=== PATIENT | male | born 1970 | race Caucasian/White ===

== ENCOUNTER 2018-08-11 17:55 | Inpatient (IN) | payer OTHER ==
--- NOTE | 2018-08-11 17:59 | PDOC ---
Rapid Medical Evaluation Chief Complaint: CVA/TIA Time Seen by Provider: 08/11/18 17:58 Medical Evaluation: Allergies Allergy/AdvReac Type Severity Reaction Status Date / Time No Known Allergies Allergy Verified 08/11/18 17:58 08/11/18 17:58 I have performed a brief in person evaluation of this patient The patient is a 48 yo smoker w/ a h/o DM, CVA comes in c/o sudden onset of difficulty getting thoughts together (expressive aphasia), dizziness, confusion , and disorientation I have ordered the following EKG, CBC, CMP, cardiac profile, CXR, CT head The patient will proceed to the ED for further evaluation 08/11/18 18:01 Discharge Disposition - Diagnosis Expressive aphasia - Referrals - Patient Instructions - Post Discharge Activity
[2018-08-11 18:04] VITALS: BMI 35.6
--- NOTE | 2018-08-11 18:23 | PDOC ---
History of Present Illness <Charles Bonilla - Last Filed: 08/11/18 18:59> - History of Present Illness Initial Comments: 08/11/18 23:05 Patient seen and evaluated immediately upon arrival. This H&P is being recorded after the initial evaluation has been completed. 48-year-old male with history of diabetes, previous CVA without residual deficits presents with left sided weakness and generalized feeling of being unwell that started approximately one hour prior to arrival. Patient reports that his symptoms are similar to the presentation when he was diagnosed with a CVA previously. Patient denies visual changes; patient does report an onset of chest discomfort shortly prior to the onset of weakness. Chest pain has now resolved. Patient denies dysarthria or dysphagia or abnormal gait. Patient was driving at the time of the onset of symptoms. REVIEW OF SYSTEMS CONSTITUTIONAL: No fever, no chills, no fatigue EYES: No visual changes ENT: No ear pain, no sore throat CARDIOVASCULAR: No chest pain, no palpitations RESPIRATORY: No cough, no SOB GI: No abdominal pain, no nausea, no vomiting, no constipation, no diarrhea GENITOURINARY: No dysuria, no frequency, no hematuria MUSKULOSKELETAL: No backpain, no joint pain, no myalgias SKIN: No rash NEURO: No headache; + left-sided weakness EXAMINATION CONSTITUTIONAL: Awake; alert; well-nourished; in no apparent distress HEAD: Normocephalic; atraumatic EYES: PERRL; EOM intact; no nystagmus ENMT: External appears normal; normal oropharynx NECK: Supple; non-tender; no cervical lymphadenopathy; no carotid bruits CARD: Tachycardic; Normal S1, S2; no murmurs, rubs, or gallops RESP: Normal chest excursion with respiration; breath sounds clear and equal bilaterally; no wheezes, rhonchi, or rales ABD: Soft, non-distended; non-tender; no palpable organomegaly, no palpable hernias EXT: Normal ROM in all four extremities; non-tender to palpation; distal pulses intact SKIN: Warm, dry, no rash NEURO: Cranial nerves II through XI are grossly intact; + tongue deviation is noted to the right; uvula is midline; motor is 5 of 54; left upper/left lower extremity drift is noted. Sensation is decreased to the left upper/lower extremity; + left upper extremity pronation drift is noted; gait-deferred. <Anselmo Wilkes - Last Filed: 08/12/18 00:37> - General Chief Complaint: CVA/TIA Stated Complaint: PAIN Time Seen by Provider: 08/11/18 17:58 Past History <Charles Bonilla - Last Filed: 08/11/18 18:59> - Past Medical History CVA: Yes (2009) COPD: No Diabetes: Yes - Immunization History Immunization Up to Date: Yes - Suicide/Smoking/Psychosocial Hx Smoking History: Current every day smoker Number of Cigarettes Smoked Daily: 7 Information on smoking cessation initiated: No Hx Alcohol Use: No Drug/Substance Use Hx: No <Anselmo Wilkes - Last Filed: 08/12/18 00:37> - Past Medical History Allergies/Adverse Reactions: Allergies Allergy/AdvReac Type Severity Reaction Status Date / Time No Known Allergies Allergy Verified 08/11/18 17:58 *Physical Exam - Vital Signs Last Vital Signs Temp Pulse Resp BP Pulse Ox 98.8 F 118 H 16 178/93 H 100 08/11/18 17:58 08/11/18 17:58 08/11/18 17:58 08/11/18 17:58 08/11/18 17:58 <Charles Bonilla - Last Filed: 08/11/18 18:59> - Vital Signs Last Vital Signs Temp Pulse Resp BP Pulse Ox 98.8 F 118 H 16 178/93 H 100 08/11/18 17:58 08/11/18 17:58 08/11/18 17:58 08/11/18 17:58 08/11/18 17:58 <Anselmo Wilkes - Last Filed: 08/12/18 00:37> NIH Stroke Scale - Last Known Well Date/Time & Onset Date Last Known Well: 08/11/18 Time Last Known Well: 05:20 - Initial Evaluation Level of consciousness: Alert Ask patient the month and their age: Answers both correctly Ask patient to open & close eyes; make fist and let go: Obeys both correctly Best gaze (horizontal eye movement): Normal Visual field testing: No visual field loss Facial paresis (Show teeth/raise eyebrows/close eyes tight): Normal symmetrical movement Motor Function: Left Arm: Drift Motor Function: Right Arm: Normal (extends arm 90 (or 45) degrees for 10 seconds without drift Motor Function: Left Leg: Drift Motor Function: Right Leg: Normal (extends leg 30 degrees for 5 seconds without drift) Limb Ataxia: No ataxia Sensory(Use pinprick test arms,legs,trunk,face/side to side): Mild to moderate decrease in sensation Best language (Describe picture, name items, read sentences): No Aphasia Dysarthria (read several words): Normal articulation Extinction and Inattention: No abnormality - Total Score NIH Stroke Scale Score: 3 <Anselmo Wilkes - Last Filed: 08/12/18 00:37> tPA Exclusion Checklist 0-3hr - Time Elapsed Date last known well: 08/11/18 - Thrombolytic Therapy Candidate Is the patient eligible for Thrombolytic Therapy?: Yes - Exclusion Criteria 0-3hr SBP greater than 185 or DBP greater than 110mmHg despite tx: No Recent IC/spinal surgery,head trauma or stroke w/in last 3mo: No Hx of previous IC hemorrhage, IC neoplasm, AVM or aneurysm: No Active internal bleeding: No Blding diathesis(low plt ct, inc PTT,INR>1.7 or use of NOAC): No Symptoms suggest subarachnoid hemorrhage: No CT demonstrates multilobar infarct(>1/3 cerebral hemiphere): No Arterial puncture at noncompressible site in previous 7 days: No Blood glucose concentration less than 50mg/dL (2.7mmol/L): No - Relative Exclusion Criteria 0-3h Life expectancy <1yr/severe co-morbid illness/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: No : No Patient/family refused: Yes Rapid improvement: No Stroke severity too mild: Yes Recent acute MA (w/in previous 3 months): No Seizure at onset with postictal residual neuro impairments: No Major surgery or serious trauma w/in previous 14 days: No Recent GI or hemorrhage (w/in previous 21 days): No - Ineligibility reason(s) Reasons No tPA given: See reason(s) noted above (NIHSS-3) <Anselmo Wilkes - Last Filed: 08/12/18 00:37> Moderate Sedation - Procedure Monitoring Vital Signs: Procedure Monitoring Vital Signs Temperature 98.8 F 08/11/18 17:58 Pulse Rate 118 H 08/11/18 17:58 Respiratory Rate 16 08/11/18 17:58 Blood Pressure 178/93 H 08/11/18 17:58 O2 Sat by Pulse Oximetry (%) 100 08/11/18 17:58 <Charles Bonilla - Last Filed: 08/11/18 18:59> - Procedure Monitoring Vital Signs: Procedure Monitoring Vital Signs Temperature 98.8 F 08/11/18 17:58 Pulse Rate 118 H 08/11/18 17:58 Respiratory Rate 16 08/11/18 17:58 Blood Pressure 178/93 H 08/11/18 17:58 O2 Sat by Pulse Oximetry (%) 100 08/11/18 17:58 <Anselmo Wilkes - Last Filed: 08/12/18 00:37> Heart Score/ECG Review #1 08/11/18 18:56 Sinus tachycardia Otherwise normal ECG Vent rate 105 bpm OR interval 140 ms QRS duration 88 ms QT/QTc 342/452 ms P-R-T 60 48 [address] Wilkes. <Charles Bonilla - Last Filed: 08/11/18 18:59> Critical Care Time/MDM Note - Medical Decision Making Note: 08/11/18 18:21 Patient seen and evaluated. Patient is a 48-year-old male with history of diabetes who presents with general feeling of unwell, left upper extremity drift and left lower extremity weakness of one hour duration. Will obtain CT of head. We'll consult neurology. 08/11/18 18:42 Case discussed with neurology, Dr. JOLLY. Given the patient's NIH stroke scale score of 2, TPA is not indicated. Will reassess. Will obtain CTA of brain as well as carotid Dopplers. We'll administer aspirin and Lipitor if no intracranial hemorrhages noted. 08/11/18 18:[address] Blood pressure is noted to be 140/80 without intervention. Repeat evaluation reveals lingual deviation to the right and decreased sensation to the area left upper and lower extremity for a total 1H stroke scale of 3. Given the risk versus benefit analysis of TPA in this patient , TPA is not indicated. I also discussed TPA administration with the patient and at this time, he expressed desire not to receive it. 08/11/18 23:04 Patient reassessed. Exam unchanged. CTA of chest/neck and brain obtained. 08/11/18 23:09 BP: 128/72 <Anselmo Wilkes - Last Filed: 08/12/18 00:37> *DC/Admit/Observation/Transfer - Attestations Scribe Attestion: 08/11/18 18:46 Documentation prepared by Charles Bonilla, acting as medical office manager for Anselmo Wilkes MD. <Charles Bonilla - Last Filed: 08/11/18 18:59> - Discharge Dispostion Decision to Admit order: Yes <Anselmo Wilkes - Last Filed: 08/12/18 00:37> Diagnosis at time of Disposition: Expressive aphasia Cerebrovascular accident (CVA) Qualifiers: CVA mechanism: unspecified Qualified Code(s): I63.9 - Cerebral infarction, unspecified - Discharge Dispostion Condition at time of disposition: Fair - Referrals Referrals: Adan Herrera MD [Primary Care Provider] -
[2018-08-11] MEDS ORDERED: ASPIRIN 325 MG TABLET ONE (19:01)
[2018-08-11] MEDS ORDERED: ASPIRIN 325 MG TABLET PO ONE (19:01)
[2018-08-11] MEDS ORDERED: ATORVASTATIN CA 80 MG TABLET (FP) PO ONE (19:02)
[2018-08-11 19:08] LABS: BASO % 1.1 % (0-2.0); EOS % 1.7 % (0-4.5); HEMATOCRIT 41.4 % (35.4-49); HEMOGLOBIN 14.8 GM/dL (11.7-16.9); LYMPH % 29.8 % (8-40); MCH 30.5 pg (25.7-33.7); MCHC 35.7 g/dl (32.0-35.9); MEAN CELL VOLUME 85.4 fl (80-96); MEAN PLT VOLUME 10.4 fl (7.5-11.1); MONO % 6.3 % (3.8-10.2); NEUT % 61.1 % (42.8-82.8); PLATELET COUNT 265 K/MM3 (134-434); RBC 4.84 M/mm3 (4.00-5.60); WHITE BLOOD COUNT 18.4 K/mm3 (4.0-10.0)
[2018-08-11] MEDS ORDERED: ATORVASTATIN CA 80 MG TABLET (FP) ONE (19:11)
[2018-08-11 19:55] LABS: VENOUS PC02 37.5 mmHg (38-52); VENOUS PH 7.44 (7.32-7.42); VENOUS PO2 66.4 mmHg (28-48)
[2018-08-11] MEDS ORDERED: ACETAMINOPHEN 500 MG TABLET (FP) PO ONE (20:10)
[2018-08-11] MEDS ORDERED: ACETAMINOPHEN 325 MG TABLET (FP) ONE (20:28)
[2018-08-11 20:45] LABS: INR 1.01 (0.83-1.09); PROTHROMBIN TIME (PATIENT) 11.9 SEC (9.7-13.0)
[2018-08-11 20:57] LABS: ALK PHOS 59 U/L (45-117); ANION GAP 9 MMOL/L (8-16); BILIRUBIN,TOTAL 0.2 mg/dL (0.2-1); BLOOD UREA NITROGEN 18 mg/dL (7-18); CALCIUM 8.9 mg/dL (8.5-10.1); CHLORIDE 105 mmol/L (98-107); CHOLESTEROL 229 mg/dL (50-200); CO2 25 mmol/L (21-32); CREATININE 1.1 mg/dL (0.55-1.3); GLUCOSE,RANDOM 96 mg/dL (74-106); HDL CHOLESTEROL 39 mg/dL (40-60); MAGNESIUM 2.2 mg/dL (1.8-2.4); PHOSPHOROUS 2.8 mg/dL (2.5-4.9); SGOT/AST 14 U/L (15-37); SGPT/ALT 25 U/L (13-61); SODIUM 140 mmol/L (136-145); TOT PROT 7.5 g/dl (6.4-8.2); TRIGLYCERIDES 264 mg/dL (0-150)
--- NOTE | 2018-08-12 01:34 | HP ---
CHIEF COMPLAINT: left-sided weakness PCP: Adan Herrera HISTORY OF PRESENT ILLNESS: Patient is a 48 y/o M w/ PMHx DM, CVA in 2009 treated with tPA (Pt reports full recovery w/o residual deficits after extensive PT), p/w sudden onset LUE and LLE weakness 1 hour prior to arrival. Experienced self-resolving chest pain prior to onset of weakness. Additionally c/o lightheadedness, confusion since resolved. Denies dysphagia, dysarthria, change in sensation, SOB. Hypertensive and tachycardic on presentation, VS stabilized spontaneously without intervention. Was within tPA window at time of presentation. Neurologist Sara was contacted by ED; based upon NIHSS 3 at time of presentation, neurologic recommendation was that risks of tPA outweight benefits and medical management with ASA and statin was initiated. Head CT revealed possible small left thalamic infarct of unknown age. Head, neck, and chest CTA revealed extensive atherosclerotic disease without hemodynamically significant stenoses. Initial labs significant for WBC 18.4, trop negative x 1, elevated TG, TChol, LDL, and low HDL. Glucose 96. ER course was notable for: (1) WBC 18.4, trop neg x 1, abnormal lipid studies (2) no definite acute pathology on CT/CTA studies (3) Recent Travel: PAST MEDICAL HISTORY: As per HPI PAST SURGICAL HISTORY: As per HPI Social History: Smoking: active smoker 1/2ppd, ~17 pk year history Alcohol: rare Drugs: none Family History: Allergies No Known Allergies Allergy (Verified 08/11/18 17:58) HOME MEDICATIONS: REVIEW OF SYSTEMS As per HPI PHYSICAL EXAMINATION Vital Signs - 24 hr 08/11/18 08/11/18 17:58 22:20 Temperature 98.8 F Pulse Rate 118 H Pulse Rate [ 74 Apical] Respiratory 16 16 Rate Blood Pressure 178/93 H Blood Pressure 96/79 [Right Arm] O2 Sat by Pulse 100 98 Oximetry (%) GENERAL: A&Ox3, NAD HEAD: NC/AT EYES: PERRLA, EOMI EARS, NOSE, THROAT: MMM NECK: Normal range of motion, supple without lymphadenopathy, JVD, or masses. LUNGS: CTA b/l HEART: RRR no m/r/g ABDOMEN: +bs, soft, NT, ND UPPER EXTREMITIES: 2+ pulses, warm, well-perfused. No cyanosis. No clubbing. No peripheral edema. LOWER EXTREMITIES: 2+ pulses, warm, well-perfused. No calf tenderness. No peripheral edema. NEUROLOGICAL: -CN: PERRLA, EOMI, CNV1-3 intact b/l, no facial asymmetry, no auditory deficit, symmetric palatal rise, uvula midline, tongue deviation to right, 4/5 strength of left trapezius and SCM -motor: 5/5 strength in RUE and RLE, 4-4+/5 strength throughout LUE, LLE at all joints proximally and distally; +left pronator drift; +spasticity of LUE and LLE -sensory: no sensory deficits appreciated, negative Romberg -reflexes: 2+ DTRs throughout, unresponsive plantars -cerebellar: FtN intact b/l, HtS impared on left (possibly d/t weakness) -EPS: no signs -gait: normal PSYCHIATRIC: Cooperative. Good eye contact. Appropriate mood and affect. SKIN: Warm, dry, normal turgor, no rashes or lesions noted, normal capillary refill. Laboratory Results - last 24 hr 08/11/18 08/11/18 08/11/18 18:15 18:15 18:15 WBC 18.4 H RBC 4.84 Hgb 14.8 Hct 41.4 MCV 85.4 MCH 30.5 MCHC 35.7 RDW 14.0 Plt Count 265 MPV 10.4 Absolute Neuts (auto) 11.3 H Neutrophils % 61.1 Lymphocytes % 29.8 Monocytes % 6.3 Eosinophils % 1.7 Basophils % 1.1 Nucleated RBC % 0 PT with INR Cancelled INR Cancelled VBG pH 7.44 H POC VBG pCO2 37.5 L POC VBG pO2 66.4 H Mixed VBG HCO3 25.0 Sodium Potassium Chloride Carbon Dioxide Anion Gap BUN Creatinine Creat Clearance w eGFR POC Glucometer Random Glucose Calcium Phosphorus Magnesium Total Bilirubin AST ALT Alkaline Phosphatase Creatine Kinase Creatine Kinase Index CK-MB (CK-2) Troponin I Total Protein Albumin Triglycerides Cholesterol Total LDL Cholesterol HDL Cholesterol Lipase Blood Type Antibody Screen 08/11/18 08/11/18 08/11/18 18:15 18:15 18:24 WBC RBC Hgb Hct MCV MCH MCHC RDW Plt Count MPV Absolute Neuts (auto) Neutrophils % Lymphocytes % Monocytes % Eosinophils % Basophils % Nucleated RBC % PT with INR INR VBG pH POC VBG pCO2 POC VBG pO2 Mixed VBG HCO3 Sodium Cancelled Potassium Cancelled Chloride Cancelled Carbon Dioxide Cancelled Anion Gap Cancelled BUN Cancelled Creatinine Cancelled Creat Clearance w eGFR Cancelled POC Glucometer [id number] Random Glucose Cancelled Calcium Cancelled Phosphorus Cancelled Magnesium Cancelled Total Bilirubin Cancelled AST Cancelled ALT Cancelled Alkaline Phosphatase Cancelled Creatine Kinase Cancelled Creatine Kinase Index CK-MB (CK-2) Troponin I Cancelled Total Protein Cancelled Albumin Cancelled Triglycerides Cancelled Cholesterol Cancelled Total LDL Cholesterol Cancelled HDL Cholesterol Cancelled Lipase Cancelled Blood Type Antibody Screen 08/11/18 08/11/18 08/11/18 19:45 19:55 19:55 WBC RBC Hgb Hct MCV MCH MCHC RDW Plt Count MPV Absolute Neuts (auto) Neutrophils % Lymphocytes % Monocytes % Eosinophils % Basophils % Nucleated RBC % PT with INR 11.90 INR 1.01 VBG pH POC VBG pCO2 POC VBG pO2 Mixed VBG HCO3 Sodium 140 Potassium 4.0 Chloride 105 Carbon Dioxide 25 Anion Gap 9 BUN 18 Creatinine 1.1 Creat Clearance w eGFR > 60 POC Glucometer Random Glucose 96 Calcium 8.9 Phosphorus 2.8 Magnesium 2.2 Total Bilirubin 0.2 AST 14 L ALT 25 Alkaline Phosphatase 59 Creatine Kinase 171 Creatine Kinase Index 0.5 CK-MB (CK-2) < 1.0 Troponin I < 0.02 Total Protein 7.5 Albumin 4.0 Triglycerides 264 H Cholesterol 229 H Total LDL Cholesterol 149 H HDL Cholesterol 39 L Lipase Blood Type O POSITIVE Antibody Screen Negative ASSESSMENT/PLAN: 48 y/o M w/ PMHx DM, CVA in 2009 treated with tPA (Pt reports full recovery w/o residual deficits after extensive PT), p/w sudden onset LUE and LLE weakness 1 hour prior to arrival. #CVA vs TIA -multiple subtle lateralizing neurologic findings as per PE, acute vs. chronic -low NIHSS on presentation, neurology contacted by ED and advised against tPA -initial CT/CTA imaging workup negative -Brain MRI -consider neurology consult -medical management w/ ASA and statin -permissive HTN x 24 hours -NPO -S/S eval -dysphagia precautions -restart ASA, statin -elevate HOB 15 degrees -fall precautions -PT -TSH, prolactin pending -cardiac monitoring #DM -hold home metformin -BGM ACHS -SSI -A1c pending #FEN -no IVF -monitor lytes -NPO pending S/S eval #code -full #dispo -tele obs Visit type - Emergency Visit Emergency Visit: Yes ED Registration Date: 08/12/18 Care time: The patient presented to the Emergency Department on the above date and was hospitalized for further evaluation of their emergent condition. - New Patient This patient is new to me today: Yes Date on this admission: 08/12/18 - Critical Care Critical Care patient: No
[2018-08-12] MEDS ORDERED: LACTATED RINGERS SOLUTION 1,000 ML/1,000 ML INFUS.BAG IV SCH (02:15)
--- NOTE | 2018-08-12 02:21 | PN ---
Teaching Attending Note Name of Resident: Raul Shipley ATTENDING PHYSICIAN STATEMENT I saw and evaluated the patient. I reviewed the resident's note and discussed the case with the resident. I agree with the resident's findings and plan as documented. SUBJECTIVE: Patient is a 48 y/o HM with a known PMH of prior CVA, DM on metformin, and obesity who presents to the ER with a CC of an episode of chest pain followed by L-sided weakness in the LUE and LLE; he was also noted to have a slight tongue deviation to the R-side. He has not had these symptoms before. He had a 2 on his NIHSS for LUE and LLE; when asked if these were old he said he actually never has been assessed for strength the way we did since his stroke so he was unsure if there was any drift present to begin with but he does admit that he is acutely weak. In terms of his chest pain, it was L-sided substernal and was moderate to severe in intensity at rest and typical in nature. He has never seen a chicle grinder feeder, had prior cath/stress testing, etc. He reveals to me that for quite some time (ie months) he has been unable to ambulate more than 3-4 city blocks due to typical anginal symptoms that are associated with exercise intolerance. He is chest pain free at the time of our encounter. He will be placed on the medicine service for observation. Neurology has been consulted by the ER. In the ER, for reasons as documented in their note tPA was not given. 10 sys ROS done and is negative aside from HPI PMH and PSH reviewed FH reviewed; per chart Socially he is a current smoker; denies significant EtOH abuse Medication list reviewed OBJECTIVE: VS, labs, imaging reviewed NAD, AAOx3, resting in bed NIHSS 2 (L-arm, L-leg; sensory deficits elicited in ER but were not able to be demonstrated on my exam); CN's in tact aside from hypoglossal with minor R- sided tongue. Speech fluid. Eating potato chips at the time of our encounter. RRR s1/2 no mgr No JVD, no LE edema Labs show HLD with TG 264, Tchol 229, LDL 149, HDL 34; initial troponin negative. CT head shows subtle L-thalamic infarct, atherosclerotic disease CTA head and neck shows no significant disease or lesion but higher than expected for age degree of stenosis ASSESSMENT AND PLAN: Mr. Arredondo is a 48 y/o HM presenting with symptoms suspect for CVA/TIA and chest pain that is revealed to have some chronic anginal components. Given his history he is at high risk for cardiovascular and cerebrovascular disease. 1) L-sided weakness, TIA v CVA -Monitor on floor on telemetry with neuro checks and seizure precautions -Neurology consulted by the ER; followup. Appreciate specialist input. -tPA not given for reasons documented in ER note (low NIH, etc.). NIHSS at this point is 2 (LUE and LLE weak) -CT, CTA reviewed. MRI, echo pending. Given that the CTA included neck we can forego carotid doppler. -Swallow study given the h/o dysphagia when this occurred (couldn't r/o aspiration risk with [facility] Stroke Screen) -Given ASA 325 in ER; continue ASA 81 PO QD and high-intensity statin given his ASCVD risk (given his age and history of stroke) -Physical therapy to assess 2) Chronic Typical Anginal Pain with episode of UA -Patient has been having chest pain and exercise intolerance for months, had an episode of CP today at rest that has resolved. He is found to have CAD on his CTA of his chest and out of proportion to age carotid atherosclerosis. Given the aforementioned alongside his age, ethnicity, obesity, current smoking status , HLD, likely HTN, DM, and history of stroke he is at very elevated risk for CAD. -Repeat EKG, trend troponin, monitor on telemetry. -Given the fact that he has LLE weakness from #1, would be a fall risk to do exercise stress testing. I will order a lexiscan and plan to consult cardiology if the test is positive -Continue on high intensity statin, ASA 81mg PO QD. 3) DM -Check A1c, hold MTF, SSI while inpt 4) Likely HTN -Had a hypertensive reading on presentation; repeat wnl. Obtain repeat BP measurements in both arms and monitor throughout hospitalization. If he needs an agent to cover I would recommend LOS inhibitor given his risk of DM, but we are in no hurry to cover due to #1 and if true CVA would benefit from permissive HTN. 5) HLD -High intensity statin; followup CMP and monitor for cramps 6) Obesity -Utilization Coordinator when clinically appropriate 7) Leukocytosis -No fevers or source for infection identified. Check inflammatory markers, trend CBC. If he becomes febrile or clinically looks septic then will of course cover but until then will monitor him. FENA -LR@75cc/hr overnight until eating -PRN replete -NPO until clear by swallow and with acknowledgement to needing to be NPO for stress -OOB2C, PT consult; advance as tolerated
[2018-08-12 04:16] LABS: URINE APPEARANCE CLEAR; URINE BILIRUBIN NEGATIVE (<2.0 mg/dL); URINE COLOR AMBER; URINE GLUCOSE (UA) NEGATIVE (NEGATIVE); URINE KETONE TRACE (NEGATIVE); URINE LEUK ESTERASE NEGATIVE (NEGATIVE); URINE NITRITE NEGATIVE (NEGATIVE); URINE PROTEIN NEGATIVE (NEGATIVE)
[2018-08-12 07:24] LABS: BASO % 0.5 % (0-2.0); EOS % 3.2 % (0-4.5); HEMOGLOBIN 14.1 GM/dL (11.7-16.9); LYMPH % 40.9 % (8-40); MCH 28.3 pg (25.7-33.7); MCHC 32.8 g/dl (32.0-35.9); MEAN CELL VOLUME 86.3 fl (80-96); MEAN PLT VOLUME 9.2 fl (7.5-11.1); MONO % 6.4 % (3.8-10.2); PLATELET COUNT 199 K/MM3 (134-434); RBC 4.98 M/mm3 (4.00-5.60); WHITE BLOOD COUNT 12.8 K/mm3 (4.0-10.0)
[2018-08-12 08:12] LABS: ANION GAP 7 MMOL/L (8-16); BLOOD UREA NITROGEN 15 mg/dL (7-18); CALCIUM 8.7 mg/dL (8.5-10.1); CHLORIDE 105 mmol/L (98-107); CO2 27 mmol/L (21-32); CREATININE 0.9 mg/dL (0.55-1.3); GLUCOSE,RANDOM 105 mg/dL (74-106); MAGNESIUM 2.3 mg/dL (1.8-2.4); PHOSPHOROUS 3.6 mg/dL (2.5-4.9); POTASSIUM 3.9 mmol/L (3.5-5.1); SODIUM 139 mmol/L (136-145)
[2018-08-12] MEDS ORDERED: REGADENOSON 0.4 MG/5 ML PRE-FILLED SYRINGE IVPUSH ONE (09:00)
--- NOTE | 2018-08-12 09:22 | PN ---
Physical Exam: SUBJECTIVE: Patient seen and examined. No acute events overnight. Pt. states that he feels better and is asking for food. Pt. 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 The senior quality assurance engineer told him that he should not be on blood thinners because he would have to be on them for the rest of his life. Pt. states that he has not take Aspirin in over 7 years. Pt. stated he does not check his blood glucose regularly at home and does not know what his glucose normal is at home. Pt. endorses chest pain on exertion to 10 steps or 3 blocks. OBJECTIVE: Vital Signs Period Temp Pulse Resp BP Sys/Barfield Pulse Ox Last 24 Hr 98 F-98.8 F 74-118 16-18 96-178/53-93 98-100 GENERAL: The patient is awake, alert, and fully oriented, in no acute distress. HEAD: Normal with no signs of trauma. EYES: PERRL, left eye twitching/horizontal nystagmus when looking to the left , sclera anicteric, conjunctiva clear. Left eye ptosis. Prominent inferior visual field deficit and peripheral vision deficits L>R ENT: Ears normal, nares patent, oropharynx clear without exudates, moist mucous membranes. NECK: Trachea midline, full range of motion, supple, carotid bruit present. LUNGS: Breath sounds equal, inspiratory wheeze in RUL, no crackles, no accessory muscle use. HEART: Regular rate and rhythm, S1, S2 without murmur ABDOMEN: Soft, nontender, nondistended, normoactive bowel sounds, no guarding, no rebound, dull to percussion. EXTREMITIES: 2+ dorsal pedal pulses, warm, well-perfused, trace edema. LUE and LLE weakness 4/5 strength compared to 5/5 strength on RUE and RLE. NEUROLOGICAL: Normal speech, gait not observed. PSYCH: Normal mood, normal affect. SKIN: Warm, dry, normal turgor Laboratory Results - last 24 hr 08/11/18 08/11/18 08/11/18 06:00 18:15 18:15 WBC 18.4 H RBC 4.84 Hgb 14.8 Hct 41.4 MCV 85.4 MCH 30.5 MCHC 35.7 RDW 14.0 Plt Count 265 MPV 10.4 Absolute Neuts (auto) 11.3 H Neutrophils % 61.1 Lymphocytes % 29.8 Monocytes % 6.3 Eosinophils % 1.7 Basophils % 1.1 Nucleated RBC % 0 PT with INR Cancelled INR Cancelled VBG pH POC VBG pCO2 POC VBG pO2 Mixed VBG HCO3 Sodium Potassium Chloride Carbon Dioxide Anion Gap BUN Creatinine Creat Clearance w eGFR POC Glucometer Random Glucose Hemoglobin A1c % Calcium Phosphorus Magnesium Total Bilirubin AST ALT Alkaline Phosphatase Creatine Kinase Creatine Kinase Index CK-MB (CK-2) Troponin I C-Reactive Protein Total Protein Albumin Triglycerides Cholesterol Total LDL Cholesterol HDL Cholesterol Lipase TSH Urine Color Urine Appearance Urine pH Ur Specific [place] Urine Protein Urine Glucose (UA) Urine Ketones Urine Blood Urine Nitrite Urine Bilirubin Urine Urobilinogen Ur Leukocyte Esterase Blood Type O POSITIVE Antibody Screen 08/11/18 08/11/18 08/11/18 18:15 18:15 18:15 WBC RBC Hgb Hct MCV MCH MCHC RDW Plt Count MPV Absolute Neuts (auto) Neutrophils % Lymphocytes % Monocytes % Eosinophils % Basophils % Nucleated RBC % PT with INR INR VBG pH 7.44 H POC VBG pCO2 37.5 L POC VBG pO2 66.4 H Mixed VBG HCO3 25.0 Sodium Cancelled Potassium Cancelled Chloride Cancelled Carbon Dioxide Cancelled Anion Gap Cancelled BUN Cancelled Creatinine Cancelled Creat Clearance w eGFR Cancelled POC Glucometer Random Glucose Cancelled Hemoglobin A1c % Calcium Cancelled Phosphorus Cancelled Magnesium Cancelled Total Bilirubin Cancelled AST Cancelled ALT Cancelled Alkaline Phosphatase Cancelled Creatine Kinase Cancelled Creatine Kinase Index CK-MB (CK-2) Troponin I Cancelled C-Reactive Protein Total Protein Cancelled Albumin Cancelled Triglycerides Cancelled Cholesterol Cancelled Total LDL Cholesterol Cancelled HDL Cholesterol Cancelled Lipase Cancelled TSH Urine Color Urine Appearance Urine pH Ur Specific [place] Urine Protein Urine Glucose (UA) Urine Ketones Urine Blood Urine Nitrite Urine Bilirubin Urine Urobilinogen Ur Leukocyte Esterase Blood Type Antibody Screen 08/11/18 08/11/18 08/11/18 18:24 19:45 19:55 WBC RBC Hgb Hct MCV MCH MCHC RDW Plt Count MPV Absolute Neuts (auto) Neutrophils % Lymphocytes % Monocytes % Eosinophils % Basophils % Nucleated RBC % PT with INR 11.90 INR 1.01 VBG pH POC VBG pCO2 POC VBG pO2 Mixed VBG HCO3 Sodium 140 Potassium 4.0 Chloride 105 Carbon Dioxide 25 Anion Gap 9 BUN 18 Creatinine 1.1 Creat Clearance w eGFR > 60 POC Glucometer 110.31454 Random Glucose 96 Hemoglobin A1c % Calcium 8.9 Phosphorus 2.8 Magnesium 2.2 Total Bilirubin 0.2 AST 14 L ALT 25 Alkaline Phosphatase 59 Creatine Kinase 171 Creatine Kinase Index 0.5 CK-MB (CK-2) < 1.0 Troponin I < 0.02 C-Reactive Protein Total Protein 7.5 Albumin 4.0 Triglycerides 264 H Cholesterol 229 H Total LDL Cholesterol 149 H HDL Cholesterol 39 L Lipase TSH Urine Color Urine Appearance Urine pH Ur Specific [place] Urine Protein Urine Glucose (UA) Urine Ketones Urine Blood Urine Nitrite Urine Bilirubin Urine Urobilinogen Ur Leukocyte Esterase Blood Type Antibody Screen 08/11/18 08/12/18 08/12/18 19:55 03:00 03:00 WBC RBC Hgb Hct MCV MCH MCHC RDW Plt Count MPV Absolute Neuts (auto) Neutrophils % Lymphocytes % Monocytes % Eosinophils % Basophils % Nucleated RBC % PT with INR INR VBG pH POC VBG pCO2 POC VBG pO2 Mixed VBG HCO3 Sodium Potassium Chloride Carbon Dioxide Anion Gap BUN Creatinine Creat Clearance w eGFR POC Glucometer Random Glucose Hemoglobin A1c % Calcium Phosphorus Magnesium Total Bilirubin AST ALT Alkaline Phosphatase Creatine Kinase Creatine Kinase Index CK-MB (CK-2) Troponin I < 0.02 C-Reactive Protein Total Protein Albumin Triglycerides Cholesterol Total LDL Cholesterol HDL Cholesterol Lipase TSH Urine Color [place] Urine Appearance Clear Urine pH 6.0 Ur Specific [place] 1.058 H Urine Protein Negative Urine Glucose (UA) Negative Urine Ketones Trace H Urine Blood Negative Urine Nitrite Negative Urine Bilirubin Negative Urine Urobilinogen 2.0 Ur Leukocyte Esterase Negative Blood Type O POSITIVE Antibody Screen Negative 08/12/18 08/12/18 08/12/18 05:38 06:00 06:00 WBC 12.8 H RBC 4.98 Hgb 14.1 Hct 43.0 MCV 86.3 MCH 28.3 MCHC 32.8 RDW 14.0 Plt Count 199 D MPV 9.2 D Absolute Neuts (auto) 6.3 Neutrophils % 49.0 Lymphocytes % 40.9 H D Monocytes % 6.4 Eosinophils % 3.2 D Basophils % 0.5 Nucleated RBC % 0 PT with INR INR VBG pH POC VBG pCO2 POC VBG pO2 Mixed VBG HCO3 Sodium 139 Potassium 3.9 Chloride 105 Carbon Dioxide 27 Anion Gap 7 L BUN 15 Creatinine 0.9 Creat Clearance w eGFR > 60 POC Glucometer 126 Random Glucose 105 Hemoglobin A1c % Calcium 8.7 Phosphorus 3.6 Magnesium 2.3 Total Bilirubin AST ALT Alkaline Phosphatase Creatine Kinase Creatine Kinase Index CK-MB (CK-2) Troponin I < 0.02 C-Reactive Protein Total Protein Albumin Triglycerides Cholesterol Total LDL Cholesterol HDL Cholesterol Lipase TSH 1.45 Urine Color Urine Appearance Urine pH Ur Specific [place] Urine Protein Urine Glucose (UA) Urine Ketones Urine Blood Urine Nitrite Urine Bilirubin Urine Urobilinogen Ur Leukocyte Esterase Blood Type Antibody Screen 08/12/18 08/12/18 06:00 06:00 WBC RBC Hgb Hct MCV MCH MCHC RDW Plt Count MPV Absolute Neuts (auto) Neutrophils % Lymphocytes % Monocytes % Eosinophils % Basophils % Nucleated RBC % PT with INR INR VBG pH POC VBG pCO2 POC VBG pO2 Mixed VBG HCO3 Sodium Potassium Chloride Carbon Dioxide Anion Gap BUN Creatinine Creat Clearance w eGFR POC Glucometer Random Glucose Hemoglobin A1c % 6.8 H Calcium Phosphorus Magnesium Total Bilirubin AST ALT Alkaline Phosphatase Creatine Kinase Creatine Kinase Index CK-MB (CK-2) Troponin I C-Reactive Protein 1.5 H Total Protein Albumin Triglycerides Cholesterol Total LDL Cholesterol HDL Cholesterol Lipase TSH Urine Color Urine Appearance Urine pH Ur Specific [place] Urine Protein Urine Glucose (UA) Urine Ketones Urine Blood Urine Nitrite Urine Bilirubin Urine Urobilinogen Ur Leukocyte Esterase Blood Type Antibody Screen Active Medications Home Medications Medication Instructions Recorded Metformin HCl [Glucophage] 500 mg PO BID 08/12/18 Current Medications Aspirin (Ecotrin -) 81 mg PO DAILY [facility] Atorvastatin Calcium (Lipitor -) 80 mg PO HS [facility] Lactated Ringer's (Lactated Ringers Solution) 1,000 ml in 1,000 mls @ 75 mls/ hr IV ASDIR [facility] ASSESSMENT/PLAN: Pt. is a 48 y.o M w/ PMHx. DM, CVA in 2009 treated with tPA (Pt reports full recovery w/o residual deficits after extensive PT), presents with sudden onset LUE and LLE weakness 1 hour prior to arrival. #Likely TIA vs. Stroke -history of stroke with residual deficits. Pt. reports feeling normal and at baseline however on physical exams many deficits noted. Will need to follow up at previous Physical Therapy centers to find out accurate baseline. -NIHSS: 4 if Pt.s hx. is accurate. -tPA NOT given in ED because risks outweigh benefits as recommended by Neurology -CT/CTA negative for acute pathology, extensive calcified athersclerotic plaques of carotid aortic bifurcation. Head CT showed small subtle left thalamic infarct, however prominent calcified atherosclerotic plaques along cavernous carotid arteries. -f/u Brain MRI -consider neurology consult -c/w ASA and statin -permissive HTN given for 24 hours -NPO pending Speech and swallow evaluations then diabetic diet -dysphagia precautions -restart ASA, statin -Physical Therapy -TSH: 1.45 -prolactin pending -Cardiac monitoring -f/u homocysteine and methylmalonic acid levels to assess for hyperhomocysteinemia -f/u with cardiology outpatient for stress test #NIDDM -hold home metformin -BGM ACHS -SSI -A1c: 6.8% #F/E/N -no IVF -monitor lytes -Diabetic diet after speech and swallow evaluation #Code -full #Dispo -tele obs Visit type - Emergency Visit Emergency Visit: Yes ED Registration Date: 08/12/18 Care time: The patient presented to the Emergency Department on the above date and was hospitalized for further evaluation of their emergent condition. - New Patient This patient is new to me today: Yes Date on this admission: 08/12/18 - Critical Care Critical Care patient: No - Discharge Referral Referred to [facility] Med P.C.: No
[2018-08-12] MEDS ORDERED: ASPIRIN 325 MG ENTERIC COATED TABLET (FP) PO SCH ×2 (10:00)
--- NOTE | 2018-08-12 10:20 | EKG ---
Test Reason : Blood Pressure : / mmHG Vent. Rate : 105 BPM Atrial Rate : 105 BPM P-R Int : 140 ms QRS Dur : 088 ms QT Int : 342 ms P-R-T Axes : 060 048 032 degrees QTc Int : 452 ms SINUS TACHYCARDIA OTHERWISE NORMAL ECG WHEN COMPARED WITH ECG OF 19-SEP-2007 18:22, NO SIGNIFICANT CHANGE WAS FOUND Confirmed by VONNIE HAYES MD ([id number]) on 08/12/2018 10:19:50 AM Referred By: Confirmed By:VONNIE HAYES MD
[2018-08-12] MEDS ORDERED: ASPIRIN COATED 81 MG TABLET.EC ONE (10:45)
[2018-08-12] MEDS: ASPIRIN COATED 81 MG TABLET.EC PO SCH (11:13)
--- NOTE | 2018-08-12 11:31 | CONSULT ---
Admitting History and Physical - Primary Care Physician PCP: Abdirahman Jung - Admission History of Present Illness: Per EMR: HISTORY OF PRESENT ILLNESS: Patient is a 48 y/o M w/ PMHx DM, CVA in 2009 treated with tPA (Pt reports full recovery w/o residual deficits after extensive PT), p/w sudden onset LUE and LLE weakness 1 hour prior to arrival. Experienced self-resolving chest pain prior to onset of weakness. Additionally c/o lightheadedness, confusion since resolved. Denies dysphagia, dysarthria, change in sensation, SOB. Hypertensive and tachycardic on presentation, VS stabilized spontaneously without intervention. Was within tPA window at time of presentation. Neurologist Sara was contacted by ED; based upon NIHSS 3 at time of presentation, neurologic recommendation was that risks of tPA outweight benefits and medical management with ASA and statin was initiated. Head CT revealed possible small left thalamic infarct of unknown age. Head, neck, and chest CTA revealed extensive atherosclerotic disease without hemodynamically significant stenoses. Initial labs significant for WBC 18.4, trop negative x 1, elevated TG, TChol, LDL, and low HDL. Glucose 96. ER course was notable for: (1) WBC 18.4, trop neg x 1, abnormal lipid studies (2) no definite acute pathology on CT/CTA studies Per hx from pt, pt felt strange sensation in head with "blood pouring", chest pain, disorientation.It felt like his previous stroke. Upon further discussion, pt said he was fasting for three days as a cleanse, only drinking water, still taking Metformin with recent dx of Diabetes. He has refused blood thinner, rec in past after his stroke. He is a present smoker.He feels the left sided weakness is baseline. History Source: Patient Limitations to Obtaining History: No Limitations - Smoking History Smoking history: Current every day smoker Aproximately how many cigarettes per day: 7 - Alcohol/Substance Use Hx Alcohol Use: No History - Admission Reason For Visit: CVA EXPRESSIVE APHASIA - Diagnostics X-ray: Report Reviewed CT Scan: Report Reviewed MRI: Pending - General Mental Status: Alert and Oriented, Awake and Alert, Able to Follow Commands Attention: Intact Ability to Follow Directions: Excellent Head/Neck Control: WFL - Hearing Hearing: Functional Speech Evaluation - Communication Primary Language: ICELANDIC Communication: Yes: Within Normal Limits Oral Expression Ability: Yes: No Impairment - Speech Production Able to Make Needs Known: Yes: WNL Intelligibility: Yes: WNL - Speech Characteristics Voice Loudness: Normal Voice Pitch: Yes: Normal Voice Phonatory-based Quality: Yes: Normal Speech Pattern: Normal Speech Clarity: < 100% Nasal Resonance: Normal Articulation: Yes: Precise Rate of Speech: Intact - Language/Auditory Comprehension Follows: Yes: 2 Stage Simple Commands Observation: Able to respond to yes/no queries: Yes, Yes/No Confusion: No, Comprehends Conversational Speech: Yes - Language/Verbal Expression Able to Respond to Simple Queries: Yes: WNL Able to Communicate Wants and Needs: Yes: WNL Functional Communication Status: Yes: WNL Attention: Yes: Intact - Memory/Perception technician terminal and repeater Memory: Yes: WNL Short Term Memory: Yes: WNL - Swallow Evaluation/Bedside Assessment Current Nutritional Intake: Regular, Thin Liquids Oral Secretions: Yes: WFL Dentition: Yes: Adequate Facial Symmetry at Rest: Symmetrical Facial Symmetry on Retraction: Symmetrical Sensation: Normal Against Resistance Opening: Normal Against Resistance Closing: Normal Pucker Lips: Normal Smile: Normal Lingual Movement: Deviates Right (Tongue deviates far to right? upon protrusion. Left sided hemiparesis baseline.I palpated tongue/neck, mandible without gross abnormalities.) Lingual Speed of Movement: Normal Lingual Movement Strgth Against Opposition: Normal Lingual Movement Characteristics: Normal Laryngeal Elevation: WFL Laryngeal Movement: Able to Palpate Rate of Intake: WFL Bolus Size: WFL Labial Seal: WFL Chewing: WFL Oral Prep Time: WFL A-P Transit: WFL Pocketing: None Timing of Swallow: WFL Coughing/Throat Clear: No Change in Voice: No Recommendations - Speech Evaluation, Impression/Plan Impression: Speech,language,swallowing, cognition intact. h/o Migraines atleast every 2 days. Recently needed to sleep on floor because of head pain.Also, Pt reports fasting for three days before onset of symptoms, still taking medication including Metformin. Present smoker.Voice wnl. Denies odynophagia, Dysphagia, vocal changes. Tongue deviates far to right? upon protrusion. I palpated tongue/neck, mandible without gross abnormalities. - Dysphagia Impressions/Plan Swallowing Skills: WFL Dysphagia Impressions: No Impairment *Silent aspiration: cannot be R/O at bedside Recommendations: Neuro Consult, Other (Smoking Cessation. RD consult re: DM education.) - Recommendations Diet Consistency: Regular Medication Administration: Whole with water Liquids: Thin Liquids
--- NOTE | 2018-08-12 11:55 | CON.CARD ---
Cardiology Consult (text) - Consultation Consultation Note: cc: confusion, headache, cp hpi: 48 m hx dm, smoking, cva here with confusion, headache, chest pain. Pt had been feeling well until yesterday when he had an unusual sensation of " water in my head", confusion, and central chest tightness. Sxs reminded him of his prior cva so came to ER. No sob palps loc pnd orthopnea le edema. Feels better now, asking to go home. No hx hrt dz. pmh: per hpi psh: nc social: +tob fam: no premature cad, scd ros: per hpi; no nvd fever abd pain gib hematuria dysuria muscle pains meds: Home Medications Medication Instructions Recorded Metformin HCl [Glucophage] 500 mg PO BID 08/12/18 Current Medications Generic Name Dose Route Start Last Admin Trade Name Ursula PRN Reason Stop Dose Admin Aspirin 81 mg 08/12/18 10:37 08/12/18 11:13 Ecotrin - PO 81 mg DAILY [facility] Administration Atorvastatin Calcium 80 mg 08/12/18 22:00 Lipitor - PO HS [facility] Lactated Ringer's 1,000 ml in 1,000 mls @ 75 mls/hr 08/12/18 02:15 Lactated Ringers Solution IV ASDIR [facility] pe: Vital Signs Period Temp Pulse Resp BP Sys/Barfield Pulse Ox Last 24 Hr 98 F-98.8 F 74-118 -18 96-178/53-93 98-100 nad no jvd rrr s1s2 no mrg cta bl nl eff aaox3 no le e/c/c abd nt nd pos bs no jaundice diaphoresis pos dp pt no carotid bruits Laboratory Last Values WBC 12.8 K/mm3 (4.0-10.0) H 08/12/18 06:00 RBC 4.98 M/mm3 (4.00-5.60) 08/12/18 06:00 Hgb 14.1 GM/dL (11.7-16.9) 08/12/18 06:00 Hct 43.0 % (35.4-49) 08/12/18 06:00 MCV 86.3 fl (80-96) 08/12/18 06:00 MCH 28.3 pg (25.7-33.7) 08/12/18 06:00 MCHC 32.8 g/dl (32.0-35.9) 08/12/18 06:00 RDW 14.0 % (11.9-15.9) 08/12/18 06:00 Plt Count 199 K/MM3 (134-434) D 08/12/18 06:00 MPV 9.2 fl (7.5-11.1) D 08/12/18 06:00 Absolute Neuts (auto) 6.3 K/mm3 (1.5-8.0) 08/12/18 06:00 Neutrophils % 49.0 % (42.8-82.8) 08/12/18 06:00 Lymphocytes % 40.9 % (8-40) H D 08/12/18 06:00 Monocytes % 6.4 % (3.8-10.2) 08/12/18 06:00 Eosinophils % 3.2 % (0-4.5) D 08/12/18 06:00 Basophils % 0.5 % (0-2.0) 08/12/18 06:00 Nucleated RBC % 0 % (0-0) 08/12/18 06:00 ESR 12 mm/hr (0-10) H 08/12/18 06:00 PT with INR 11.90 SEC (9.7-13.0) 08/11/18 19:55 INR 1.01 (0.83-1.09) 08/11/18 19:55 VBG pH 7.44 (7.32-7.42) H 08/11/18 18:15 POC VBG pCO2 37.5 mmHg (38-52) L 08/11/18 18:15 POC VBG pO2 66.4 mmHg (28-48) H 08/11/18 18:15 Mixed VBG HCO3 25.0 meq/L (19-25) 08/11/18 18:15 Sodium 139 mmol/L (136-145) 08/12/18 06:00 Potassium 3.9 mmol/L (3.5-5.1) 08/12/18 06:00 Chloride 105 mmol/L (98-107) 08/12/18 06:00 Carbon Dioxide 27 mmol/L (21-32) 08/12/18 06:00 Anion Gap 7 MMOL/L (8-16) L 08/12/18 06:00 BUN 15 mg/dL (7-18) 08/12/18 06:00 Creatinine 0.9 mg/dL (0.55-1.3) 08/12/18 06:00 Creat Clearance w eGFR > 60 (>60) 08/12/18 06:00 POC Glucometer 126 UNITS (80-120) 08/12/18 05:38 Random Glucose 105 mg/dL (74-106) 08/12/18 06:00 Hemoglobin A1c % 6.8 % (4.2-6.3) H 08/12/18 06:00 Calcium 8.7 mg/dL (8.5-10.1) 08/12/18 06:00 Phosphorus 3.6 mg/dL (2.5-4.9) 08/12/18 06:00 Magnesium 2.3 mg/dL (1.8-2.4) 08/12/18 06:00 Total Bilirubin 0.2 mg/dL (0.2-1) 08/11/18 19:45 AST 14 U/L (15-37) L 08/11/18 19:45 ALT 25 U/L (13-61) 08/11/18 19:45 Alkaline Phosphatase 59 U/L (45-117) 08/11/18 19:45 Creatine Kinase 171 IU/L (26-308) 08/11/18 19:45 Creatine Kinase Index 0.5 % (0.0-5.0) 08/11/18 19:45 CK-MB (CK-2) < 1.0 ng/mL (0.5-3.6) 08/11/18 19:45 Troponin I < 0.02 ng/ml (0.00-0.05) 08/12/18 06:00 C-Reactive Protein 1.5 MG/DL (0.00-0.3) H 08/12/18 06:00 Total Protein 7.5 g/dl (6.4-8.2) 08/11/18 19:45 Albumin 4.0 g/dl (3.4-5.0) 08/11/18 19:45 Triglycerides 264 mg/dL (0-150) H 08/11/18 19:45 Cholesterol 229 mg/dL (50-200) H 08/11/18 19:45 Total LDL Cholesterol 149 mg/dL (5-100) H 08/11/18 19:45 HDL Cholesterol 39 mg/dL (40-60) L 08/11/18 19:45 Lipase Cancelled 08/11/18 18:15 TSH 1.45 uIU/ml (0.358-3.74) 08/12/18 06:00 Urine Color [place] 08/12/18 03:00 Urine Appearance Clear 08/12/18 03:00 Urine pH 6.0 (5.0-8.0) 08/12/18 03:00 Ur Specific [place] 1.058 (1.010-1.035) H 08/12/18 03:00 Urine Protein Negative (NEGATIVE) 08/12/18 03:00 Urine Glucose (UA) Negative (NEGATIVE) 08/12/18 03:00 Urine Ketones Trace (NEGATIVE) H 08/12/18 03:00 Urine Blood Negative (NEGATIVE) 08/12/18 03:00 Urine Nitrite Negative (NEGATIVE) 08/12/18 03:00 Urine Bilirubin Negative (<2.0 mg/dL) 08/12/18 03:00 Urine Urobilinogen 2.0 mg/dL (0.2-1.0) 08/12/18 03:00 Ur Leukocyte Esterase Negative (NEGATIVE) 08/12/18 03:00 Blood Type O POSITIVE 08/11/18 19:55 Antibody Screen Negative 08/11/18 19:55 cta chest: no diss/aneurysm, clear lungs tele: sr ecg: sr nl intervals no ischemic changes a/p: 48 m hx dm, smoking, cva here with confusion, headache, chest pain. headache, confusion, ?cva: -tele, ecg benign -echo pending -plans per Neuro cp: -atypical cp episode, resolved now -trops negx3, ecg wnl -echo pending, if benign can f/u as outpt tob use: -smoking cessation discussed hld: -on statin
--- NOTE | 2018-08-12 11:56 | PN ---
Teaching Attending Note Name of Resident: Jose Roberto Solis ATTENDING PHYSICIAN STATEMENT I saw and evaluated the patient. I reviewed the resident's note and discussed the case with the resident. I agree with the resident's findings and plan as documented. SUBJECTIVE: No fever or chills. No abd pain, no LI now, but has chronic occipital LI for 3 years which became worse ( severity and frequency) a year ago. had a stroke in past, which affected his L side, and he is not sure that his L sided weakness is new or old . he reports exertional cp for < 30 min and resolves with resting. OBJECTIVE: NAD , AAOx3. CV: RRR , no MRG Lungs: CTAB Ext : no edema , or erythema. Neuro : EOMI, round equal pupils, reactive to light , no facial droop, tongue is slightly deviated to R. can't visualize uvula. strength : LUE: shoulder shrug, shoulder abduction and flexion, and biceps/triceps, hand postmaster 4/5. RUE: shoulder shrug, shoulder abduction and flexion, and biceps/triceps, hand postmaster 5/5. LLE: hip felxion, knee flexion /extension , ankle dorsiflexion and plantar flexion 4/5 RLE: hip felxion, knee flexion /extension , ankle dorsiflexion and plantar flexion 5/5 reflexes: 2+ knee jerk and biceps, and BR sensatio nto light touch NL finger to nose normal. gait NL ASSESSMENT AND PLAN: 48 y/o gentleman with h/o CVA, and DM who presented with L sided CP and L sided weakness. 1- L sided weakness: not sure if findings of L sided weakness are due to old stroke or new stroke. Ct head with L thalamic infarct. CTA reviewing. - MRI - aspirin daily - Echo - tele : no arrhythmias so far. - statin. - will need prolonged out patient cardiac monitoring after dc - neuro consult - reports having a blood disorder per a label paster he saw long time ago.He was advised to use asa . will try to obtain records and he was advised to follow withher ( Rojelio ) 2- Chest pain: typical angina per history. EKG : No ischemic changes. Nl trop - echo - given the possibility of acute stroke, canceled stress test. - needs a stress test as out pt 3- DM: A1c. 6. 8. - SSi - hold metformin 4- dispo: monitor for 24 hr on tele . MRI pending . possible dc in am
--- NOTE | 2018-08-12 14:43 | ECHO ---
Name: VJ XIE Exam:Adult Echocardiogram Study Date: 08/12/2018 01:55 PM Age: 48 yrs Reason For Study: Chest pain Height: 71 in Weight: 248 lb BSA: 2.3 m2 MMode/2D Measurements & Calculations IVSd: 1.1 cm Ao root diam: 3.3 cm LVIDd: 4.6 cm LA dimension: 3.0 cm LVIDs: 2.7 cm LVPWd: 1.2 cm EDV(Teich): 95.2 ml ESV(Teich): 26.6 ml Doppler Measurements & Calculations MV E max sage: 71.8 cm/sec Med Peak E' Sage: 10.7 cm/sec MV A max sage: 67.4 cm/sec Med E/e': 6.7 MV E/A: 1.1 Lat Peak E' Sage: 15.3 cm/sec MV dec time: 0.11 sec Lat E/e': 4.7 PI Vmax: 149.3 cm/sec Left Ventricle Left ventricular systolic function is normal. Ejection Fraction = 55-60%. Right Ventricle The right ventricle is normal in size and function. Atria Normal left and right atrial size and function. Mitral Valve The mitral valve is normal in structure and function. There is no mitral valve stenosis. There is mil d mitral regurgitation. Tricuspid Valve The tricuspid valve is normal in structure and function. There is mild tricuspid regurgitation. Aortic Valve The aortic valve opens well. No hemodynamically significant valvular aortic stenosis. No aortic regur gitation is present. Pulmonic Valve The pulmonic valve is not well seen, but is grossly normal. There is no pulmonic valvular stenosis. M ild pulmonic valvular regurgitation. Great Vessels The aortic root is normal size. Pericardium/Pleura There is no pericardial effusion. Interpretation Summary Left ventricular systolic function is normal. Ejection Fraction = 55-60%. The right ventricle is normal in size and function. There is mild mitral regurgitation. There is mild tricuspid regurgitation. The aortic valve opens well. There is no pericardial effusion. MD Guaman *Nabil 08/12/2018 02:42 PM
--- NOTE | 2018-08-12 16:25 | CON.NEURO ---
Consult Consult Specialty:: Neurology Referred by:: Dr. Jung Reason for Consultation:: Transient neurologic deficits - History of Present Illness Chief Complaint: Transient confusion History of Present Illness: Patient states that last night he started feeling odd, like water pouring over his head, then a bit confused and went to er, worried that he might be having a stroke. Had had a stroke in the past, with complete resolution of deficits after TPA and rehab. Over the last 6 months, he has been getting headaches every other day, either in the AM or PM for which he takes Excedrin (asa/tylenol/caffeine) as nothing else takes the headache away. He describes the pain as severe pain in the back of his head and radiating to the left eye. Denies nausea, photophobia, phonophobia. Says it feels like his eye is congested but denies nasal congestion, tearing, ptosis. He hasn't been taking ASA regularly since his stroke, but he gets it every other day from the Excedrin. 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 - Alcohol/Substance Use Hx Alcohol Use: No - Smoking History Smoking history: Current every day smoker Aproximately how many cigarettes per day: 7 Home Medications - Allergies Allergies/Adverse Reactions: Allergies Allergy/AdvReac Type Severity Reaction Status Date / Time No Known Allergies Allergy Verified 08/11/18 17:58 - Home Medications Home Medications: Ambulatory Orders Metformin HCl [Glucophage] 500 mg PO BID 08/12/18 Review of Systems - Review of Systems Neurological: reports: Headache (Headaches every other day) Physical Exam-Neuro Vital Signs: Vital Signs Temperature 98.2 F 08/12/18 14:55 Pulse Rate 94 H 08/12/18 14:55 Respiratory Rate 18 08/12/18 14:55 Blood Pressure 152/71 08/12/18 14:55 O2 Sat by Pulse Oximetry (%) 99 08/12/18 09:00 Labs: CBC, BMP 08/12/18 06:00 08/12/18 06:00 INR, PTT INR 1.01 (0.83-1.09) 08/11/18 19:55 NIH Stroke Scale - Initial Evaluation Level of consciousness: Alert Ask patient the month and their age: Answers both correctly Ask patient to open & close eyes; make fist and let go: Obeys both correctly Best gaze (horizontal eye movement): Normal Visual field testing: No visual field loss Facial paresis (Show teeth/raise eyebrows/close eyes tight): Normal symmetrical movement Motor Function: Left Arm: Normal Motor Function: Right Arm: Normal (extends arm 90 (or 45) degrees for 10 seconds without drift Motor Function: Left Leg: Normal (extends leg 30 degrees for 5 seconds without drift) Motor Function: Right Leg: Normal (extends leg 30 degrees for 5 seconds without drift) Limb Ataxia: No ataxia Sensory(Use pinprick test arms,legs,trunk,face/side to side): Normal Best language (Describe picture, name items, read sentences): No Aphasia Dysarthria (read several words): Normal articulation Extinction and Inattention: No abnormality - Total Score NIH Stroke Scale Score: 0 Imaging - Results Cat Scan: Report Reviewed, Image Reviewed (vague hyperattenuation left thalamus , unclear if old or new) Problem List - Problems (1) Headache Code(s): R51 - HEADACHE Assessment/Plan Transient deficit, consistent with TIA, now with total resolution. CT shows vague hypodensity in Left Thalamus, unclear if old or new. He awaits MRI brain. Headaches are dificult to characterize, probably migrainous, though could be cluster, less likely. For these, would start topamax.
[2018-08-12] MEDS: INSULIN SLIDING SCALE (NOVOLOG) 1 VIAL SQ SCH (17:24)
[2018-08-12] MEDS ORDERED: ATORVASTATIN CA 80 MG TABLET (FP) PO SCH (22:00)
[2018-08-13] MEDS: INSULIN SLIDING SCALE (NOVOLOG) 1 VIAL SQ SCH ×2 (06:34→12:15)
[2018-08-13 07:19] LABS: HEMOGLOBIN 14.3 GM/dL (11.7-16.9); MCHC 34.8 g/dl (32.0-35.9); MEAN CELL VOLUME 86.1 fl (80-96); MEAN PLT VOLUME 9.5 fl (7.5-11.1); PLATELET COUNT 204 K/MM3 (134-434); RBC 4.76 M/mm3 (4.00-5.60); RDW 14.1 % (11.9-15.9)
[2018-08-13 07:55] LABS: ANION GAP 7 MMOL/L (8-16); BLOOD UREA NITROGEN 17 mg/dL (7-18); CALCIUM 8.5 mg/dL (8.5-10.1); CHLORIDE 108 mmol/L (98-107); CO2 24 mmol/L (21-32); CREATININE 0.9 mg/dL (0.55-1.3); GLUCOSE,RANDOM 114 mg/dL (74-106); PHOSPHOROUS 3.7 mg/dL (2.5-4.9); POTASSIUM 4.3 mmol/L (3.5-5.1); SODIUM 139 mmol/L (136-145)
[2018-08-13] MEDS ORDERED: PT OWN MED DRAWER 7, Y5N ONE (09:01)
[2018-08-13] MEDS: ASPIRIN COATED 81 MG TABLET.EC PO SCH (09:04)
[2018-08-13] MEDS ORDERED: TOPIRAMATE 25 MG TABLET (FP) PO SCH (10:00)
--- NOTE | 2018-08-13 11:45 | PN ---
Progress Note, Physician History of Present Illness: No CV complaints overnight No chest pains or dyspena Tele: SB 40-90s - Current Medication List Current Medications: Active Medications Aspirin (Ecotrin -) 81 mg PO DAILY [facility] Last Admin: 08/13/18 09:04 Dose: 81 mg Atorvastatin Calcium (Lipitor -) 80 mg PO HS [facility] Last Admin: 08/12/18 21:40 Dose: 80 mg Insulin Aspart (Novolog Vial Sliding Scale -) 1 vial SQ TIDAC [facility]; Protocol Last Admin: 08/13/18 06:34 Dose: Not Given Topiramate (Topamax -) 25 mg PO DAILY [facility] Last Admin: 08/13/18 09:04 Dose: 25 mg - Objective Vital Signs: Vital Signs Temperature 97.9 F 08/13/18 10:00 Pulse Rate 85 08/13/18 10:00 Respiratory Rate 18 08/13/18 10:00 Blood Pressure 131/80 08/13/18 10:00 O2 Sat by Pulse Oximetry (%) 97 08/13/18 09:00 Constitutional: Yes: Well Nourished, No Distress Eyes: Yes: WNL HENT: Yes: WNL Neck: Yes: WNL Cardiovascular: Yes: WNL, Regular Rate and Rhythm Respiratory: Yes: CTA Bilaterally Gastrointestinal: Yes: Normal Bowel Sounds Extremities: Yes: WNL Edema: No Labs: CBC, BMP 08/13/18 05:50 08/13/18 05:50 INR, PTT INR 1.01 (0.83-1.09) 08/11/18 19:55 Assessment/Plan a/p: 48 m hx dm, smoking, cva here with confusion, headache, chest pain. headache, confusion, ?cva: -tele, ecg benign -Echo report reviewed showing normal biventricular size and function without any significant valvular abnormality -plans per Neuro cp: -atypical cp episode, resolved now -trops negx3, ecg wnl -echo unremarkable tob use: -smoking cessation discussed hld: -on statin
--- NOTE | 2018-08-13 11:58 | PN ---
Teaching Attending Note Name of Resident: Corrine Worthy ATTENDING PHYSICIAN STATEMENT I saw and evaluated the patient. I reviewed the resident's note and discussed the case with the resident. I agree with the resident's findings and plan as documented. SUBJECTIVE: No fever or chills. LI improved . No visual changes. no new neurologic sx. had an accident of incontinence to urine last night while aslep OBJECTIVE: NAD , AAOx3. CV: RRR , no MRG Lungs: CTAB Ext : no edema , or erythema. Neuro : EOMI, round equal pupils, reactive to light , no facial droop, tongue is slightly deviated to R. uvula at mid line . Strength : LUE: shoulder shrug, shoulder abduction and flexion, and biceps/triceps, hand wash box operator 4/5. hand wash box operator NL RUE: shoulder shrug, shoulder abduction and flexion, and biceps/triceps, hand wash box operator 5/5. LLE: hip felxion, knee flexion /extension , ankle dorsiflexion and plantar flexion 4/5 . hand wash box operator NL RLE: hip felxion, knee flexion /extension , ankle dorsiflexion and plantar flexion 5/5 reflexes: 2+ knee jerk and biceps sensation to light touch NL finger to nose normal. gait NL today too ASSESSMENT AND PLAN: 48 y/o gentleman with h/o CVA, and DM who presented with L sided CP and L sided weakness. 1- Possible TIA vs old residual L sided weakness. - MRI with no acute stroke. - cont asa - cont statin - tele with no arrhythmias. he understand he needs f/u with card for prolonged cardiac monitoring - f/u with neuro as out pt - echo wiht mild MR, TR with no sourc eof emboli 2- episode of CP resolved. chronic stable angina sx . needs stress test as out pt . - f/u with card within a week 3- DM : cont metformin BId after dc 4- Finding of sinusitis on MRI . with the persistent mild leukocytosis , I would treat with augmenin x 7 days and to camille lora with ENT. will give referral DC home He was referred to resident clinic as per his wish -he understands importance of compliance and follow up . need Lipid panel in 6-8 weeks
--- NOTE | 2018-08-13 12:20 | DS ---
Physical Exam: SUBJECTIVE: Patient seen and examined, no new complaints. Denies headache, blurry vision, chest pain, palpitations, leg swelling. OBJECTIVE: Vital Signs Period Temp Pulse Resp BP Sys/Barfield Pulse Ox Last 24 Hr 97.3 F-98.9 F 75-99 18-20 113-152/49-80 97-99 PHYSICAL EXAM GENERAL: The patient is awake, alert, and fully oriented, in no acute distress. HEAD: Normal with no signs of trauma. EYES: PERRL, extraocular movements intact, sclera anicteric, conjunctiva clear. LUNGS: Breath sounds equal, clear to auscultation bilaterally, no wheezes, no crackles, no accessory muscle use. HEART: Regular rate and rhythm, S1, S2 without murmur, rub or gallop. ABDOMEN: Soft, nontender, nondistended, normoactive bowel sounds, no guarding, no rebound, no hepatosplenomegaly, no masses. EXTREMITIES: 2+ pulses, warm, well-perfused, no edema. NEUROLOGICAL: Cranial nerves II through XII grossly intact. Normal speech, gait not observed. PSYCH: Normal mood, normal affect. SKIN: Warm, dry, normal turgor, no rashes or lesions noted. LABS Laboratory Results - last 24 hr 08/12/18 08/12/18 08/12/18 06:00 16:53 21:35 WBC RBC Hgb Hct MCV MCH MCHC RDW Plt Count MPV Sodium Potassium Chloride Carbon Dioxide Anion Gap BUN Creatinine Creat Clearance w eGFR POC Glucometer 118 133 Random Glucose Calcium Phosphorus Magnesium Prolactin 19.9 H 08/13/18 08/13/18 08/13/18 05:50 05:50 11:20 WBC 12.0 H RBC 4.76 Hgb 14.3 Hct 41.0 MCV 86.1 MCH 30.0 MCHC 34.8 RDW 14.1 Plt Count 204 MPV 9.5 Sodium 139 Potassium 4.3 Chloride 108 H Carbon Dioxide 24 Anion Gap 7 L BUN 17 Creatinine 0.9 Creat Clearance w eGFR > 60 POC Glucometer 111 Random Glucose 114 H Calcium 8.5 Phosphorus 3.7 Magnesium 2.0 Prolactin HOSPITAL COURSE: Date of Admission:08/12/18 Date of Discharge: 08/13/18 48-year-old male with history of diabetes, previous CVA without residual LUE and LLE deficits, presents with left sided weakness, headache and generalized feeling of being unwell that started approximately one hour prior to arrival. Patient reports that his symptoms are similar to the presentation when he was diagnosed with a CVA previously. NIH score was 3; TPA nto given. Symptoms resolved according to patient. Most likely transient deficit. CT showed vague hypodensity in Left Thalamus, unclear if old or new. Brain MRI, no acute stroke, positive for sinusitis. Prescribed Augmentin upon discharge and referal to ENT.Seem by neurology, and diagnosed with migraine, started on topamax. Seem by cardiology, no need for inpatient stress, due to transient TIA , will follow up as outpatient for further evaluation for possible arrhythmia and stress testing. Echo report reviewed showing normal biventricular size and function without any significant valvular abnormality. Will continue asa and statin. Will follow up at resident clinic. Minutes to complete discharge: 40 Discharge Summary Reason For Visit: CVA EXPRESSIVE APHASIA Current Active Problems Cerebrovascular accident (CVA) (Acute) Expressive aphasia (Acute) Headache (Acute) TIA (transient ischemic attack) (Acute) Condition: Improved - Instructions Diet, Activity, Other Instructions: Mr. Arredondo you head imaging did not reveal acute stroke, although you may have had a transient stoke that is not visible on imaging. Due to this occurrence and previous history we recommend that you see a angle shear set up operator for prolonged heart monitoring and evaluation of possible arrhythmias and stress testing. Your brain imaging did show some fluid in your sinuses. This could cause headache. Will are prescribing you 7 day course of antibiotics, augmentin for sinusitis. We recommend follow up visit with neurology and an ear/nose/throat doctor for further evaluation ( Dr. Walker ) . Information will be provided. New medications : aspirin , topamax and lipitor. please take in addition to your metformin. you need repeat cholesterol level in 6-8 weeks. close follow up is very important form now on Referrals: [facility] [place] [Provider Group] Adan Herrera MD [Primary Care Provider] - Chase Nieves MD [Staff Physician] - Mike Godoy MD [Staff Physician] - 1 Week Gigi Walker MD [Staff Physician] - 1 Week Disposition: HOME - Home Medications Comprehensive Discharge Medication List: Ambulatory Orders Metformin HCl [Glucophage] 500 mg PO BID 08/12/18 Aspirin Coated [Ecotrin -] 81 mg PO DAILY tablet.ec 08/13/18 Atorvastatin Ca [Lipitor] 80 mg PO HS 30 Days #30 tablet 08/13/18 Topiramate [Topamax -] 25 mg PO DAILY 30 Days #30 tablet 08/13/18 This patient is new to me today: Yes Date on this admission: 08/13/18 Emergency Visit: Yes ED Registration Date: 08/12/18 Care time: The patient presented to the Emergency Department on the above date and was hospitalized for further evaluation of their emergent condition. Critical Care patient: No - Discharge Referral Referred to [facility] Med [facility].C.: No
[2018-08-13] MEDS ORDERED: NICOTINE 7 MG/24 HOURS TOPICAL PATCH TD SCH (13:15)
[2018-08-13 14:32] VITALS: BP 128/76; PULSE 88; TEMP 97.8
--- NOTE | 2018-08-13 14:53 | PN ---
Progress Note (short form) - Note Progress Note: Patient states that last night he started feeling odd, like water pouring over his head, then a bit confused and went to er, worried that he might be having a stroke. Had a stroke in the past, with complete resolution of deficits after TPA and rehab. Over the last 6 months, he has been getting headaches every other day, either in the AM or PM for which he takes Excedrin (asa/tylenol/caffeine) as nothing else takes the headache away. He describes the pain as severe pain in the back of his head and radiating to the left eye. Denies nausea, photophobia, phonophobia. Says it feels like his eye is congested but denies nasal congestion, tearing, ptosis. He hasn't been taking ASA regularly since his stroke, but he gets it every other day from the Excedrin. FU : no new issues MRI BRAIN: IMPRESSION: See discussion above. No acute intracranial pathology is identified. Mild chronic sinusitis with mild to moderate deviation of the nasal septum to the right and suggestion of mucosal hypertrophy in the right nasal cavity. 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 - Alcohol/Substance Use Hx Alcohol Use: No - Smoking History Smoking history: Current every day smoker Aproximately how many cigarettes per day: 7 Home Medications - Allergies Allergies/Adverse Reactions: Allergies Allergy/AdvReac Type Severity Reaction Status Date / Time No Known Allergies Allergy Verified 08/11/18 17:58 - Home Medications Home Medications: Ambulatory Orders Metformin HCl [Glucophage] 500 mg PO BID 08/12/18 Review of Systems - Review of Systems Neurological: reports: Headache (Headaches every other day) Physical Exam-Neuro Vital Signs: Vital Signs Temperature 97.8 F 08/13/18 14:00 Pulse Rate 88 08/13/18 14:00 Respiratory Rate 18 08/13/18 14:00 Blood Pressure 128/76 08/13/18 14:00 O2 Sat by Pulse Oximetry (%) 97 08/13/18 09:00 Labs: CBCD WBC 12.0 K/mm3 (4.0-10.0) H 08/13/18 05:50 RBC 4.76 M/mm3 (4.00-5.60) 08/13/18 05:50 Hgb 14.3 GM/dL (11.7-16.9) 08/13/18 05:50 Hct 41.0 % (35.4-49) 08/13/18 05:50 MCV 86.1 fl (80-96) 08/13/18 05:50 MCHC 34.8 g/dl (32.0-35.9) 08/13/18 05:50 RDW 14.1 % (11.9-15.9) 08/13/18 05:50 Plt Count 204 K/MM3 (134-434) 08/13/18 05:50 MPV 9.5 fl (7.5-11.1) 08/13/18 05:50 CMP Sodium 139 mmol/L (136-145) 08/13/18 05:50 Potassium 4.3 mmol/L (3.5-5.1) 08/13/18 05:50 Chloride 108 mmol/L (98-107) H 08/13/18 05:50 Carbon Dioxide 24 mmol/L (21-32) 08/13/18 05:50 Anion Gap 7 MMOL/L (8-16) L 08/13/18 05:50 BUN 17 mg/dL (7-18) 08/13/18 05:50 Creatinine 0.9 mg/dL (0.55-1.3) 08/13/18 05:50 Creat Clearance w eGFR > 60 (>60) 08/13/18 05:50 Calcium 8.5 mg/dL (8.5-10.1) 08/13/18 05:50 Total Bilirubin 0.2 mg/dL (0.2-1) 08/11/18 19:45 AST 14 U/L (15-37) L 08/11/18 19:45 ALT 25 U/L (13-61) 08/11/18 19:45 Alkaline Phosphatase 59 U/L (45-117) 08/11/18 19:45 Total Protein 7.5 g/dl (6.4-8.2) 08/11/18 19:45 Albumin 4.0 g/dl (3.4-5.0) 08/11/18 19:45 NIH Stroke Scale - Initial Evaluation Level of consciousness: Alert Ask patient the month and their age: Answers both correctly Ask patient to open & close eyes; make fist and let go: Obeys both correctly Best gaze (horizontal eye movement): Normal Visual field testing: No visual field loss Facial paresis (Show teeth/raise eyebrows/close eyes tight): Normal symmetrical movement Motor Function: Left Arm: Normal Motor Function: Right Arm: Normal (extends arm 90 (or 45) degrees for 10 seconds without drift Motor Function: Left Leg: Normal (extends leg 30 degrees for 5 seconds without drift) Motor Function: Right Leg: Normal (extends leg 30 degrees for 5 seconds without drift) Limb Ataxia: No ataxia Sensory(Use pinprick test arms,legs,trunk,face/side to side): Normal Best language (Describe picture, name items, read sentences): No Aphasia Dysarthria (read several words): Normal articulation Extinction and Inattention: No abnormality - Total Score NIH Stroke Scale Score: 0 Imaging - Results Cat Scan: Report Reviewed, Image Reviewed (vague hyperattenuation left thalamus , unclear if old or new) Problem List - Problems (1) Headache Code(s): R51 - HEADACHE Assessment/Plan Transient deficit, consistent with TIA, now with total resolution. MRI brain (-) neuro cleared Dc fu outpt DR OLSON
== END 2018-08-13 14:30 | disposition home or self-care (01) | DRG 58 ==
LOC: JER 17:55 → JERBED 08-12 00:37 → J4S 08-12 04:12
PROVIDERS: ADMIT Internal Medicine; ATTEND Internal Medicine
DX: I69.320 Aphasia following cerebral infarction (principal); G45.9 Transient cerebral ischemic attack, unspecified; I69.354 Hemiplegia and hemiparesis following cerebral infarction affecting left non-dominant side; G43.909 Migraine, unspecified, not intractable, without status migrainosus; F17.210 Nicotine dependence, cigarettes, uncomplicated; E11.9 Type 2 diabetes mellitus without complications; R07.89 Other chest pain; E78.5 Hyperlipidemia, unspecified; I69.391 Dysphagia following cerebral infarction; I20.9 Angina pectoris, unspecified; E66.9 Obesity, unspecified; Z68.34 Body mass index [BMI] 34.0-34.9, adult; D72.829 Elevated white blood cell count, unspecified; R51 Headache; I10 Essential (primary) hypertension
CPT/HCPCS: 36415; 70450-TC; 70496-TC; 70498-TC; 70551-TC; 71045-TC-FY; 71275-TC; 80048; 80053; 80061; 81003; 82136; 82550; 82553; 82803; 82962; 83036; 83721; 83735; 83918; 84100; 84146; 84443; 84484; 85025; 85027; 85610; 85651; 86140; 86850; 86900; 86901; 93005; 93010; 93306-TC; 97116-GP; 97161-GP; 99285-25; A9502

== ENCOUNTER 2020-05-05 19:54 | Inpatient (IN) | payer OTHER ==
[2020-05-05 20:12] VITALS: BMI 35.5
--- NOTE | 2020-05-05 20:40 | PDOC ---
History of Present Illness - General Chief Complaint: Chest Pain Stated Complaint: LFT HAND NUMBNESS Time Seen by Provider: 05/05/20 20:38 - History of Present Illness Initial Comments: HPI Pt is a 49yo M with PMH DM, hx of CVA in 2009 who presents with left fingertip paresthesias. States that symptoms began 4-5 days ago, denies any specific triggers. 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 States that he has recently noticed axillary nodules that are uncomfortable, as well as nodules in his inguinal region. States that he is complaint with his metformin, and takes multiple herbal supplements for his diabetes. Reports that he does not check his finger stick, but states that he had blood work for his life insurance and was told his a1c was "slightly above normal." Denies f/c, chest pain, n/v, headache, lightheadedness, dizziness, LOC, change in vision. PCP: Christin PMH: see above PSH: see chart Meds: metformin Allergies: NKDA Social: smokes 10 cigarettes/day, uses CBD oil in vape pen, denies etoh and illicit substance use Review of Systems CONSTITUTIONAL:denies fever, chills, diaphoresis, generalized weakness, malaise, loss of appetite HEENT:denies rhinorrhea, nasal congestion, sore throat, throat swelling, difficulty swallowing, mouth swelling, ear pain, eye pain, visual changes CARDIOVASCULAR:denies chest pain, syncope, palpitations, irregular heart rate, lightheadedness, peripheral edema RESPIRATORY:denies cough, shortness of breath, dyspnea with exertion, orthopnea, wheezing, hemoptysis GASTROINTESTINAL: denies abdominal pain, abdominal distension, nausea, vomiting, diarrhea, constipation, melena, hematochezia GENITOURINARY:denies dysuria, frequency, urgency, hesitancy, hematuria, flank pain, genital pain MUSCULOSKELETAL:denies myalgia, arthralgia, neck pain, back pain HEMATOLOGIC/IMMUNOLOGIC:denies easy bleeding, easy bruising ENDOCRINE: denies unexplained weight gain, unexplained weight loss, heat intolerance, cold intolerance NEUROLOGIC:denies headache, loss of consciousness, focal weakness or paresthesias, dizziness, unsteady gait, seizure, mental status changes, bladder or bowel incontinence SKIN:denies rash, itching, pallor PSYCHIATRIC:denies anxiety, depression, suicidal or homicidal ideation, hallucinations. Physical Exam General: awake, alert, fully oriented, in no acute distress, well developed, well nourished Head: normocephalic, atraumatic Eyes: PERRL, anicteric sclera, conjunctiva clear ENT: hearing grossly normal, moist mucous membranes Neck: supple, normal ROM, no LAD, JVD or masses Lung: equal breath sounds b/l, CTA b/l, no crackles, wheezes; no distress, speaks full sentences Heart: RRR, normal S1, S2, no murmurs appreciated Abdomen: soft, non tender, normoactive bowel sounds, no guarding, rebound, masses Extremities: normal ROM, no edema, no erythema or tenderness, radial/DP/PT pulses 2+ and symmetric, no clubbing, cyanosis; L axilla with superficial 1cm nodule, nonerythematous, nonfluctuant Neuro: Cranial nerves: Cranial nerves II through XII are intact, No abnormal nystagmus. Motor: The upper extremities are 5/5 in all muscle groups. The lower extremities are 5/5 in all muscle groups. No pronator drift. Sensation: Sensation is intact to light touch throughout. Cerebellar: -dysmetria, -dysdiadochokinesia, [id number] is normal in both lower extremities. Gait: Normal without ataxia Skin: warm, dry [facility] Pt is a 49yo M with PMH DM who presents with left fingertip paresthesias. Vitals WNL. 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 DDx including but not limited to: ACS, radiculopathy, electrolyte abnormality Workup: labs, cxr, ekg EKG: normal sinus rhythm, HR 97bpm, CA 142ms, QRS 92ms, QTc 449ms, no ST changes, possible left atrial enlargement as compared to 07/2018 CXR - no pneumothorax or pleural effusion. midline airway, appropriate vascular markings, no blunting of costophrenic angle, no cardiomegaly, as read by ED staff 05/05/20 22:48 Labs: leukocytosis, no anemia, electrolytes WNL, Mg/Phos WNL, trop WNL, elevated lipid panel - as per attending, will order UA, will order head CT Head CT: Mild nonspecific periventricular predominant low density throughout the deep white matter is most likely due to mild small vessel ischemic white matter disease. Cannot exclude acute stroke. no acute intracranial hemorrhage, mass effect, or midline shift UA: -LE, -nitrite, -ketonuria, -glucosuria, -bacteriuria Discussed admission with patient who agreed with plan. Disposition: Admit tPA Exclusion Checklist 0-3hr - Time Elapsed Date last known well: 04/30/20 Time last known well: 17:00 Elaspsed time: 12 Day(s) and 0 Hour(s) and 44 Minutes - Thrombolytic Therapy Candidate Is the patient eligible for Thrombolytic Therapy?: No - Ineligibility reason(s) Reasons No tPA given: Outside of window - delayed arrival NIH Stroke Scale - Last Known Well Date/Time & Onset Date Last Known Well: 04/30/20 Time Last Known Well: 17:00 - Initial Evaluation Level of consciousness: Alert Ask patient the month and their age: Answers both correctly Ask patient to open & close eyes; make fist and let go: Obeys both correctly Best gaze (horizontal eye movement): Normal Visual field testing: No visual field loss Facial paresis (Show teeth/raise eyebrows/close eyes tight): Normal symmetrical movement Motor Function: Left Arm: Normal Motor Function: Right Arm: Normal (extends arm 90 (or 45) degrees for 10 seconds without drift Motor Function: Left Leg: Normal (extends leg 30 degrees for 5 seconds without drift) Motor Function: Right Leg: Normal (extends leg 30 degrees for 5 seconds without drift) Limb Ataxia: No ataxia Sensory(Use pinprick test arms,legs,trunk,face/side to side): Normal Best language (Describe picture, name items, read sentences): No Aphasia Dysarthria (read several words): Normal articulation Extinction and Inattention: No abnormality - Total Score NIH Stroke Scale Score: 0 Past History - Medical History Allergies/Adverse Reactions: Allergies Allergy/AdvReac Type Severity Reaction Status Date / Time No Known Allergies Allergy Verified 08/11/18 17:58 Home Medications: Ambulatory Orders Metformin HCl [Glucophage] 500 mg PO BID 08/12/18 Atorvastatin Ca [Lipitor] 40 mg PO HS #30 tablet 05/06/20 CVA: Yes (2009) COPD: No Diabetes: Yes - Immunization History Immunization Up to Date: Yes - Psycho-Social/Smoking History Smoking History: Current every day smoker Have you smoked in the past 12 months: Yes Number of Cigarettes Smoked Daily: 10 Information on smoking cessation initiated: Yes 'Breaking Loose' booklet given: 08/12/18 - Substance Abuse Hx (Audit-C & DAST Scrn) How often the patient has a drink containing alcohol: Never Score: In Men: 4 or > Positive; In Women: 3 or > Positive: 0 Screen Result (Pos requires Nsg. Audit-10AR): Negative *Physical Exam - Vital Signs Last Vital Signs Temp Pulse Resp BP Pulse Ox 97.3 F L 67 20 132/76 99 05/05/20 20:01 05/05/20 20:01 05/05/20 20:01 05/05/20 20:01 05/05/20 20:01 ED Treatment Course - LABORATORY CBC & Chemistry Diagram: 05/06/20 06:00 05/06/20 06:00 Discharge - Discharge Information Problems reviewed: Yes Clinical Impression/Diagnosis: Paresthesias in left hand Condition: Stable - Admission Yes - Follow up/Referral - Patient Discharge Instructions - Post Discharge Activity
[2020-05-05 21:49] LABS: BASO % 0.3 % (0-2.0); EOS % 2.4 % (0-4.5); HEMATOCRIT 42.8 % (35.4-49); HEMOGLOBIN 14.3 GM/dL (11.7-16.9); LYMPH % 30.6 % (8-40); MCH 28.9 pg (25.7-33.7); MCHC 33.5 g/dl (32.0-35.9); MEAN CELL VOLUME 86.3 fl (80-96); MEAN PLT VOLUME 9.1 fl (7.5-11.1); MONO % 5.8 % (3.8-10.2); NEUT % 60.9 % (42.8-82.8); PLATELET COUNT 221 K/MM3 (134-434); RBC 4.96 M/mm3 (4.00-5.60); RDW 14.2 % (11.9-15.9); WHITE BLOOD COUNT 17.3 K/mm3 (4.0-10.0)
[2020-05-05 22:22] LABS: CHOLESTEROL 213 mg/dL (50-200); HDL CHOLESTEROL 34 mg/dL (40-60); LDL CHOLESTEROL (ONLY SJRH) 121 mg/dL (5-100); TRIGLYCERIDES 332 mg/dL (0-150)
[2020-05-05 22:25] LABS: ALBUMIN 3.8 g/dl (3.4-5.0); ALK PHOS 66 U/L (45-117); ANION GAP 7 MMOL/L (8-16); BILIRUBIN,TOTAL 0.2 mg/dL (0.2-1); BLOOD UREA NITROGEN 18.2 mg/dL (7-18); CALCIUM 8.8 mg/dL (8.5-10.1); CHLORIDE 105 mmol/L (98-107); CO2 26 mmol/L (21-32); CREATININE 0.9 mg/dL (0.55-1.3); GLUCOSE,RANDOM 106 mg/dL (74-106); PHOSPHOROUS 3.2 mg/dL (2.5-4.9); POTASSIUM 4.2 mmol/L (3.5-5.1); SGOT/AST 18 U/L (15-37); SGPT/ALT 25 U/L (13-61); SODIUM 138 mmol/L (136-145); TOT PROT 7.6 g/dl (6.4-8.2)
[2020-05-05 22:58] LABS: PH,URINE 5.5 (5.0-8.0); URINE APPEARANCE CLEAR; URINE BILIRUBIN NEGATIVE (NEGATIVE); URINE COLOR YELLOW; URINE GLUCOSE (UA) NEGATIVE (NEGATIVE); URINE KETONE NEGATIVE (NEGATIVE); URINE LEUK ESTERASE NEGATIVE (NEGATIVE); URINE NITRITE NEGATIVE (NEGATIVE); URINE PROTEIN NEGATIVE (NEGATIVE); URINE UROBILINOGEN 0.2 mg/dL (0.2-1.0)
--- NOTE | 2020-05-06 01:30 | PDOC ---
Documentation entered by Yaya Concepcion SCRIBE, acting as scribe for Luli Miller MD. Luli Miller MD: This documentation has been prepared by the Jamey giang Angel, SCRIBE, under my direction and personally reviewed by me in its entirety. I confirm that the documentation accurately reflects all work, treatment, procedures, and medical decision making performed by me. Attending Attestation - Resident Resident Name: Emily Jaimes - ED Attending Attestation I have performed the following: I have examined & evaluated the patient, The case was reviewed & discussed with the resident, I agree w/resident's findings & plan - HPI HPI: 05/05/20 23:38 The patient is a 49 year old male with a significant past medical history of diabetes (diagnosed 2 years ago) and CVA in 2010 given TPA who presents to the ED with left hand numbness for approximately 5 days. The patient states he has been brushing off the pain since it began but today was forced to come in by daughter. The patient has swelling under the left armpit as well and is very concerned this may be related to a stroke. The patient notes having an anal fissure a year ago which was severely infected and another one 6months ago with abscess. The patient denies any other complaints. Social History: Works multiple jobs, Does not exercise. - Physicial Exam PE: 05/05/20 23:43 GENERAL: Awake, alert, and fully oriented, in no acute distress HEAD: No signs of trauma EYES: PERRLA, EOMI, sclera anicteric, conjunctiva clear ENT: Auricles normal inspection, hearing grossly normal, nares patent, oropharynx clear without exudates. Moist mucosa NECK: Normal ROM, supple, no lymphadenopathy, JVD, or masses LUNGS: Breath sounds equal, clear to auscultation bilaterally. No wheezes, and no crackles HEART: Regular rate and rhythm, normal S1 and S2, no murmurs, rubs or gallops ABDOMEN: Soft, nontender, normoactive bowel sounds. No guarding, no rebound. No masses EXTREMITIES: +Left hand numbness. Superficial nodule of the left axilla of unknown origin. Normal range of motion, no edema. No clubbing or cyanosis. No cords, erythema, or tenderness NEUROLOGICAL: Cranial nerves II through XII grossly intact. Normal speech, normal gait SKIN: Warm, Dry, normal turgor, no rashes or lesions noted. - Medical Decision Making 05/05/20 22:36 Pt comes with left hand numbness. CXR normal EKG WBC is elevated Chem is normal Diabetes well controlled Pt has elevated triglycerides and cholesterol 05/06/20 01:29 Patient Name: VJ XIE THIS IS A PRELIMINARY REPORT DATE OF SERVICE: 2020-05-05 22:54:03 IMAGES: 240 EXAM: HEAD CT WITHOUT CONTRAST HISTORY: 49-year-old male with left hand numbness COMPARISON: None. FINDINGS: No acute intracranial hemorrhage mass effect or midline shift. The ventricles sulci and basilar cisterns have a normal size and contour. Mild nonspecific periventricular predominant low density throughout the deep white matter is most likely due to mild small vessel ischemic white matter disease. Cannot exclude acute stroke. Calcified arteriosclerosis of the cavernous carotids noted. The sinuses and mastoid air cells are clear within the [id number]. The calvarium is intact. IMPRESSION No acute intracranial hemorrhage mass effect or midline shift. Mild nonspecific periventricular predominant low density throughout the deep white matter is most likely due to mild small vessel ischemic white matter disease. Cannot exclude an acute stroke. If there is a clinical concern for an acute stroke, then follow-up evaluation with an MRI of the brain may be needed. Calcified arteriosclerosis of the cavernous carotids noted. 05/06/20 01:29 Pt will be admitted for MRI Discharge - Discharge Information Problems reviewed: Yes Clinical Impression/Diagnosis: Paresthesias in left hand Condition: Stable - Follow up/Referral - Patient Discharge Instructions - Post Discharge Activity
--- NOTE | 2020-05-06 02:44 | PN ---
Teaching Attending Note Name of Resident: David Robins ATTENDING PHYSICIAN STATEMENT I saw and evaluated the patient. I reviewed the resident's note and discussed the case with the resident. I agree with the resident's findings and plan as documented. SUBJECTIVE: 49yoM with history of CVA 2010 s/p tPA without residual deficits, diabetes, and rectal fistula s/p repair x2 who presents with 5 days of paresthesias in his left fingertips. States he has been in his usual state of health but about 5 days ago noticed sensation of pins and needles in his left sided fingertips. Also noticed some nodules in his left axilla, right groin, and perianal area around the same time. Paresthesias have been constant, no alleviating or exacerbating factors. Had similar sensation in his right hand for a day but that resolved spontaneously. Denies focal weakness, lightheadedness, syncope, recent injury. The nodules he has noticed are not painful. Labs notable for WBC 17.3. CT head on preliminary read showed mild small vessel ischemic white matter disease, cannot exclude acute stroke. Admitted for further work up and management. OBJECTIVE: Vital Signs (72 hours) 05/05/20 05/05/20 20:01 23:14 Temperature 97.3 F L 98.4 F Pulse Rate 67 Pulse Rate [ 79 Radial] Respiratory 20 19 Rate Blood Pressure 132/76 Blood Pressure 119/84 [Left Arm] O2 Sat by Pulse 99 99 Oximetry (%) EXAM: Gen: awake, alert, NAD HEENT: NC/AT CV: RRR, no MRG Resp: CTAB Abd: Soft, NT, ND Ext: No edema Derm: several 0.5 - 1cm nodules left axilla, nontender, no overlying erythema, no fluctuance appreciated. No open lesions or drainage. Roughly 2cm x 3cm nodule right inguinal area, no surrounding erythema. Neuro: Slight decreased sensation left fingertips. Strength 5/5 all extremities, face symmetric, speech fluent. Psych: AOx3 Laboratory Results - last 24 hr 05/05/20 05/05/20 05/05/20 21:33 21:33 21:33 WBC 17.3 H RBC 4.96 Hgb 14.3 Hct 42.8 MCV 86.3 MCH 28.9 MCHC 33.5 RDW 14.2 Plt Count 221 MPV 9.1 Absolute Neuts (auto) 10.5 H Neutrophils % 60.9 D Lymphocytes % 30.6 D Monocytes % 5.8 Eosinophils % 2.4 Basophils % 0.3 Nucleated RBC % 0 Sodium 138 Potassium 4.2 Chloride 105 Carbon Dioxide 26 Anion Gap 7 L BUN 18.2 H Creatinine 0.9 Est GFR (CKD-EPI)AfAm 115.02 Est GFR (CKD-EPI)NonAf 99.24 Random Glucose 106 Calcium 8.8 Phosphorus 3.2 Magnesium 2.0 Total Bilirubin 0.2 AST 18 ALT 25 Alkaline Phosphatase 66 Troponin I < 0.02 Total Protein 7.6 Albumin 3.8 Triglycerides 332 H Cholesterol 213 H Total LDL Cholesterol 121 H HDL Cholesterol 34 L Urine Color Urine Appearance Urine pH Ur Specific [place] Urine Protein Urine Glucose (UA) Urine Ketones Urine Blood Urine Nitrite Urine Bilirubin Urine Urobilinogen Ur Leukocyte Esterase 05/05/20 22:49 WBC RBC Hgb Hct MCV MCH MCHC RDW Plt Count MPV Absolute Neuts (auto) Neutrophils % Lymphocytes % Monocytes % Eosinophils % Basophils % Nucleated RBC % Sodium Potassium Chloride Carbon Dioxide Anion Gap BUN Creatinine Est GFR (CKD-EPI)AfAm Est GFR (CKD-EPI)NonAf Random Glucose Calcium Phosphorus Magnesium Total Bilirubin AST ALT Alkaline Phosphatase Troponin I Total Protein Albumin Triglycerides Cholesterol Total LDL Cholesterol HDL Cholesterol Urine Color Yellow Urine Appearance Clear Urine pH 5.5 Ur Specific [place] 1.024 Urine Protein Negative Urine Glucose (UA) Negative Urine Ketones Negative Urine Blood Negative Urine Nitrite Negative Urine Bilirubin Negative Urine Urobilinogen 0.2 Ur Leukocyte Esterase Negative Imaging, EKG reviewed in chart ASSESSMENT AND PLAN: 49yoM with history of CVA 2010 s/p tPA without residual deficits, diabetes, and rectal fistula s/p repair x2 who presents with 5 days of paresthesias in his left fingertips. Paresthesias Limited to left fingertips ?diabetic neuropathy, although not classic distribution CT head non-conclusive; given h/o prior CVA will f/u with MRI - MRI brain - neuro consult - continue aspirin Nodules Unclear etiology Location of nodules typical of hidradenitis suppurativa, but this seems to be late onset and currently there is no evidence of inflammation or scarring - US of inguinal nodule - outpatient derm f/u DVT ppx: Lovenox subq
[2020-05-06 07:22] LABS: EOS % 3.3 % (0-4.5); HEMATOCRIT 43.3 % (35.4-49); HEMOGLOBIN 14.1 GM/dL (11.7-16.9); LYMPH % 26.8 % (8-40); MCH 28.3 pg (25.7-33.7); MCHC 32.7 g/dl (32.0-35.9); MEAN CELL VOLUME 86.7 fl (80-96); MEAN PLT VOLUME 9.6 fl (7.5-11.1); MONO % 6.7 % (3.8-10.2); NEUT % 62.2 % (42.8-82.8); PLATELET COUNT 207 K/MM3 (134-434); RBC 4.99 M/mm3 (4.00-5.60); RDW 14.2 % (11.9-15.9); WHITE BLOOD COUNT 14.8 K/mm3 (4.0-10.0)
--- NOTE | 2020-05-06 07:24 | HP ---
CHIEF COMPLAINT: Left hand, fingertip pins and needles PCP: HISTORY OF PRESENT ILLNESS: 49yo M with PMH Righthandedness, NIDM, h/o perirectal fistula(sp REUA and drain placement 2019), h/o of CVA in 2009(had slurred speech and Left-sided LUE and LLE weakness sp TPA, sp REGAN therapy) who presents with complaint of left hand numbness of the fingertips. Since Wednesday/Wednesday(5-6d) has had feeling of pins and needles; like tips have been in "frozen ice"; in Left hand. RIght hand had similiar symptoms but resolved in <1d. 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 Day prior to pins and needles, had Left axillary pain w/ palpable balls that are painful to touch. Growing in size. Had similiar Right inguinal "lump" x1-1.5weeks which has grown bigger than shrunk. Thinks has similiar perirectal masses. Denies night sweats. Thinks he looks like he lost weight, but is unchanged on scale. 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 A blood thinning medication was recommended but pt declined. Has not followed with a neurologist. Takes ASA 81mg daily. Doesn't take statin d/t the belief that lifestyle modification and supplements(eg. garlic pills) will sufficient. ER course was notable for: -98.4F, 67, 132/76, 20 -NIHSS 0 -pt 5 days outside of TPA window -EKG: normal sinus rhythm, HR 97bpm, GA 142ms, QRS 92ms, QTc 449ms, no ST changes, possible left atrial enlargement as compared to 07/2018 -Head CT: Mild nonspecific periventricular predominant low density throughout the deep white matter is most likely due to mild small vessel ischemic white matter disease. Cannot exclude acute stroke. no acute intracranial hemorrhage, mass effect, or midline shift Recent Travel: denies PAST MEDICAL HISTORY: as above PAST SURGICAL HISTORY: -RUEA(Glenda, 7mo prior) for perirectal fistula Social History: Smoking: smokes 10-15 cigarettes/day since 17ys, uses CBD oil in vape pen, Alcohol: EtOH on Holidays; Drugs: former cocaine(18ys, stopped in 2004) Allergies No Known Allergies Allergy (Verified 08/11/18 17:58) HOME MEDICATIONS: Home Medications Medication Instructions Recorded Metformin HCl [Glucophage] 500 mg PO BID 08/12/18 REVIEW OF SYSTEMS CONSTITUTIONAL: Absent: fever, chills, diaphoresis, generalized weakness, malaise, loss of appetite, weight change HEENT: Absent: rhinorrhea, nasal congestion, throat pain, throat swelling, difficulty swallowing, mouth swelling, ear pain, eye pain, visual changes CARDIOVASCULAR: Absent: chest pain, syncope, palpitations, irregular heart rate, lightheadedness, peripheral edema RESPIRATORY: Absent: cough, shortness of breath, dyspnea with exertion, orthopnea, wheezing, stridor, hemoptysis GASTROINTESTINAL: Absent: abdominal pain, abdominal distension, nausea, vomiting, diarrhea, constipation, melena, hematochezia GENITOURINARY: Absent: dysuria, frequency, urgency, hesitancy, hematuria, flank pain, genital pain MUSCULOSKELETAL: Absent: myalgia, arthralgia, joint swelling, back pain, neck pain SKIN: Absent: rash, itching, pallor HEMATOLOGIC/IMMUNOLOGIC: Absent: easy bleeding, easy bruising, lymphadenopathy, frequent infections ENDOCRINE: Absent: unexplained weight gain, unexplained weight loss, heat intolerance, cold intolerance NEUROLOGIC: Left hand finger tip pins and needles sensation Absent: headache, focal weakness, dizziness, unsteady gait, seizure, mental status changes, bladder or bowel incontinence PSYCHIATRIC: Absent: anxiety, depression, suicidal or homicidal ideation, hallucinations. PHYSICAL EXAMINATION Vital Signs - 24 hr 05/05/20 05/05/20 05/06/20 20:01 23:14 06:15 Temperature 97.3 F L 98.4 F 98.2 F Pulse Rate 67 Pulse Rate [ 79 78 Radial] Respiratory 20 19 17 Rate Blood Pressure 132/76 Blood Pressure 119/84 124/71 [Left Arm] O2 Sat by Pulse 99 99 96 Oximetry (%) GENERAL: Awake, alert, and fully oriented, in no acute distress. Obese HEAD: Normal with no signs of trauma. EYES: extraocular movements intact, sclera anicteric, conjunctiva clear. No lid lag. EARS, NOSE, THROAT: Ears normal, nares patent, oropharynx clear without exudates. Moist mucous membranes. NECK: Normal range of motion, supple without lymphadenopathy, JVD, or masses. LUNGS: Breath sounds equal, clear to auscultation bilaterally. No wheezes, and no crackles. No accessory muscle use. HEART: Regular rate and rhythm, normal S1 and S2 without murmur, rub or gallop. ABDOMEN: Soft, nontender, not distended, normoactive bowel sounds, no guarding, no rebound. Buttocks: perirectal surgical scarring, no areas of fluccutuance, no tenderness , no erythema MUSCULOSKELETAL: Normal range of motion at all joints. No bony deformities or tenderness. UPPER EXTREMITIES: 2+ pulses, warm, well-perfused. No cyanosis. No clubbing. No peripheral edema. LOWER EXTREMITIES: 2+ pulses, warm, well-perfused. No calf tenderness. No peripheral edema. NEUROLOGICAL: Cranial nerves II-XII intact. Normal speech. Normal gait. NIHSS 0 SKIN: Left axillary with firm, mobile nodules(all <1cm) w/o warmth/erythema. RIght inguinal nodule with overlying skin hyperpigmentation; nontender Laboratory Results - last 24 hr 05/05/20 05/05/20 05/05/20 21:33 21:33 21:33 WBC 17.3 H RBC 4.96 Hgb 14.3 Hct 42.8 MCV 86.3 MCH 28.9 MCHC 33.5 RDW 14.2 Plt Count 221 MPV 9.1 Absolute Neuts (auto) 10.5 H Neutrophils % 60.9 D Lymphocytes % 30.6 D Monocytes % 5.8 Eosinophils % 2.4 Basophils % 0.3 Nucleated RBC % 0 Sodium 138 Potassium 4.2 Chloride 105 Carbon Dioxide 26 Anion Gap 7 L BUN 18.2 H Creatinine 0.9 Est GFR (CKD-EPI)AfAm 115.02 Est GFR (CKD-EPI)NonAf 99.24 Random Glucose 106 Calcium 8.8 Phosphorus 3.2 Magnesium 2.0 Total Bilirubin 0.2 AST 18 ALT 25 Alkaline Phosphatase 66 Troponin I < 0.02 Total Protein 7.6 Albumin 3.8 Triglycerides 332 H Cholesterol 213 H Total LDL Cholesterol 121 H HDL Cholesterol 34 L Urine Color Urine Appearance Urine pH Ur Specific [place] Urine Protein Urine Glucose (UA) Urine Ketones Urine Blood Urine Nitrite Urine Bilirubin Urine Urobilinogen Ur Leukocyte Esterase 05/05/20 22:49 WBC RBC Hgb Hct MCV MCH MCHC RDW Plt Count MPV Absolute Neuts (auto) Neutrophils % Lymphocytes % Monocytes % Eosinophils % Basophils % Nucleated RBC % Sodium Potassium Chloride Carbon Dioxide Anion Gap BUN Creatinine Est GFR (CKD-EPI)AfAm Est GFR (CKD-EPI)NonAf Random Glucose Calcium Phosphorus Magnesium Total Bilirubin AST ALT Alkaline Phosphatase Troponin I Total Protein Albumin Triglycerides Cholesterol Total LDL Cholesterol HDL Cholesterol Urine Color Yellow Urine Appearance Clear Urine pH 5.5 Ur Specific [place] 1.024 Urine Protein Negative Urine Glucose (UA) Negative Urine Ketones Negative Urine Blood Negative Urine Nitrite Negative Urine Bilirubin Negative Urine Urobilinogen 0.2 Ur Leukocyte Esterase Negative ASSESSMENT/PLAN: 49yo M with PMH Righthandedness, NIDM, h/o perirectal fistula(sp REUA and drain placement 2019), h/o of CVA in 2009(had slurred speech and Left-sided LUE and LLE weakness sp TPA, sp REGAN therapy) who presents with complaint of left hand numbness of the fingertips. HD stable. NIHSS 0 on EM exam and my exam. Labs with WBC 17.3 but no obvious signs of infection. Imaging showing possible deep white matter ischemia(small area). Admitted for CVA w/u. #Left hand paresthesisa --likely 2/2 CVA vs diabetic neuropathy vs other > CTH: Mild nonspecific periventricular predominant low density throughout the deep white matter is most likely due to mild small vessel ischemic white matter disease. Cannot exclude acute stroke. > MRI brain --pending -ASA 81, atorvastatin 40mg HS -Neuro consult(Yael): --recs pending #Left axillary nodules(tender) and Right inguinal nodule(nontender) --possibly hiadrenitis; less likely lymphoma > US right inguinal subcutaneous nodule --pending #chronic HLD >Tcholesterol 213, LDL 120, HDL 34 -started atorvastatin 40mg HS #chronic DM -hold home metformin -ISS FEN -no IVF -diabetic diet DVT PPX: -lovenox Family Medical History Family History: As Documented Family Hx Diabetes: Sister Visit type - Emergency Visit Emergency Visit: Yes ED Registration Date: 05/05/20 Care time: The patient presented to the Emergency Department on the above date and was hospitalized for further evaluation of their emergent condition. - New Patient This patient is new to me today: Yes Date on this admission: 05/06/20 - Critical Care Critical Care patient: No ATTENDING PHYSICIAN STATEMENT I saw and evaluated the patient. I reviewed the resident's note and discussed the case with the resident. I agree with the resident's findings and plan as documented. SUBJECTIVE: OBJECTIVE: ASSESSMENT AND PLAN:
[2020-05-06 07:58] LABS: BLOOD UREA NITROGEN 18.3 mg/dL (7-18); CALCIUM 8.4 mg/dL (8.5-10.1); CREATININE 0.9 mg/dL (0.55-1.3); MAGNESIUM 2.2 mg/dL (1.8-2.4); POTASSIUM 4.1 mmol/L (3.5-5.1)
[2020-05-06] MEDS ORDERED: ASPIRIN 81 MG CHEWABLE TABLETS ONE (09:34)
[2020-05-06] MEDS ORDERED: ENOXAPARIN NA (PORCINE) 40 MG/0.4 ML DISP.SYRIN SQ ONE (09:34)
[2020-05-06] MEDS ORDERED: ASPIRIN 81 MG CHEWABLE TABLETS PO SCH (10:00)
[2020-05-06] MEDS ORDERED: ENOXAPARIN NA (PORCINE) 40 MG/0.4 ML DISP.SYRIN SQ SCH (10:00)
--- NOTE | 2020-05-06 11:29 | PN ---
Physical Exam: SUBJECTIVE: Patient seen and examined. Complains of persistent numbness and tingling of L hand. OBJECTIVE: Vital Signs Period Temp Pulse Resp BP Sys/Barfield Pulse Ox Last 24 Hr 97.3 F-98.4 F 67-79 17-20 119-132/71-84 96-99 GENERAL: Awake and alert, not in acute distress. HEENT: NCAT, EOMI. Moist mucus membranes. CARDIAC: RRR, S1, S2 present. No murmur. RESPIRATORY: CTA b/l. No wheezes. ABDOMEN: Obese. Soft, nondistended, Nontender to palpation. Bowel sounds present. NEURO: moving extremities spontaneously. NIHSS 0. EXTREMITIES: Warm, well-perfused, no edema. SKIN: Warm, dry. Tender, firm L axillary nodules present. Hyperpigmented nontender R inguinal nodule present. Laboratory Last Values WBC 14.8 K/mm3 (4.0-10.0) H 05/06/20 06:00 RBC 4.99 M/mm3 (4.00-5.60) 05/06/20 06:00 Hgb 14.1 GM/dL (11.7-16.9) 05/06/20 06:00 Hct 43.3 % (35.4-49) 05/06/20 06:00 MCV 86.7 fl (80-96) 05/06/20 06:00 MCH 28.3 pg (25.7-33.7) 05/06/20 06:00 MCHC 32.7 g/dl (32.0-35.9) 05/06/20 06:00 RDW 14.2 % (11.9-15.9) 05/06/20 06:00 Plt Count 207 K/MM3 (134-434) 05/06/20 06:00 MPV 9.6 fl (7.5-11.1) 05/06/20 06:00 Absolute Neuts (auto) 9.2 K/mm3 (1.5-8.0) H 05/06/20 06:00 Neutrophils % 62.2 % (42.8-82.8) 05/06/20 06:00 Lymphocytes % 26.8 % (8-40) 05/06/20 06:00 Monocytes % 6.7 % (3.8-10.2) 05/06/20 06:00 Eosinophils % 3.3 % (0-4.5) 05/06/20 06:00 Basophils % 1.0 % (0-2.0) D 05/06/20 06:00 Nucleated RBC % 0 % (0-0) 05/06/20 06:00 Sodium 139 mmol/L (136-145) 05/06/20 06:00 Potassium 4.1 mmol/L (3.5-5.1) 05/06/20 06:00 Chloride 107 mmol/L (98-107) 05/06/20 06:00 Carbon Dioxide 25 mmol/L (21-32) 05/06/20 06:00 Anion Gap 7 MMOL/L (8-16) L 05/06/20 06:00 BUN 18.3 mg/dL (7-18) H 05/06/20 06:00 Creatinine 0.9 mg/dL (0.55-1.3) 05/06/20 06:00 Est GFR (CKD-EPI)AfAm 115.02 05/06/20 06:00 Est GFR (CKD-EPI)NonAf 99.24 05/06/20 06:00 Random Glucose 100 mg/dL (74-106) 05/06/20 06:00 Calcium 8.4 mg/dL (8.5-10.1) L 05/06/20 06:00 Phosphorus 3.2 mg/dL (2.5-4.9) 05/05/20 21:33 Magnesium 2.2 mg/dL (1.8-2.4) 05/06/20 06:00 Total Bilirubin 0.2 mg/dL (0.2-1) 05/05/20 21:33 AST 18 U/L (15-37) 05/05/20 21:33 ALT 25 U/L (13-61) 05/05/20 21:33 Alkaline Phosphatase 66 U/L (45-117) 05/05/20 21:33 Troponin I < 0.02 ng/ml (0.00-0.05) 05/05/20 21:33 Total Protein 7.6 g/dl (6.4-8.2) 05/05/20 21:33 Albumin 3.8 g/dl (3.4-5.0) 05/05/20 21:33 Triglycerides 332 mg/dL (0-150) H 05/05/20 21:33 Cholesterol 213 mg/dL (50-200) H 05/05/20 21:33 Total LDL Cholesterol 121 mg/dL (5-100) H 05/05/20 21:33 HDL Cholesterol 34 mg/dL (40-60) L 05/05/20 21:33 TSH 1.48 uIU/ml (0.358-3.74) D 05/06/20 06:00 Urine Color Yellow 05/05/20 22:49 Urine Appearance Clear 05/05/20 22:49 Urine pH 5.5 (5.0-8.0) 05/05/20 22:49 Ur Specific [place] 1.024 (1.010-1.035) 05/05/20 22:49 Urine Protein Negative (NEGATIVE) 05/05/20 22:49 Urine Glucose (UA) Negative (NEGATIVE) 05/05/20 22:49 Urine Ketones Negative (NEGATIVE) 05/05/20 22:49 Urine Blood Negative (NEGATIVE) 05/05/20 22:49 Urine Nitrite Negative (NEGATIVE) 05/05/20 22:49 Urine Bilirubin Negative (NEGATIVE) 05/05/20 22:49 Urine Urobilinogen 0.2 mg/dL (0.2-1.0) 05/05/20 22:49 Ur Leukocyte Esterase Negative (NEGATIVE) 05/05/20 22:49 Active Medications Aspirin (Asa -) 81 mg PO DAILY [facility] Atorvastatin Calcium (Lipitor -) 40 mg PO HS APOLINAR Enoxaparin Sodium (Lovenox -) 40 mg SQ DAILY [facility] Insulin Aspart (Novolog Vial Sliding Scale -) 1 vial SQ ACHS [facility]; Protocol MRI brain; 05/06/2020 Remarkable examination. There is no acute infarction. CT head w/o contrast; 05/05/2020 No acute bleed or mass or fracture.No CT evidence of acute infarct. If symptoms persist recommend MRI CXR; 05/05/2020 No acute chest pathology. Azygos lobe and fissure. ASSESSMENT/PLAN: 49 year old M with PMH DM, HLD, mann-rectal fistual s/p REUA and drain placement, CVA in 2009 s/p tPA (L sided weakness) presented with 6 days of L hand numbness and tingling. Pt is admitted for CVA workup. L hand numbness secondary to CVA vs. diabetic neuropathy -CT head as above. -MRI brain as above. - c/w ASA 81, atorvastatin 40mg qHS -Neuro consulted. Pending recommendations. Tender L axillary nodules and Nontender R inguinal nodule, unclear etiology. Secondary to hidradenitis suppurativa? -Etiology to be determined -Pt declined US R inguinal nodule -f/u derm as outpatient. Leukocytosis, etiology to be determined -Downtending, continue to monitor - UA negative HLD - Elevated TG, total cholesterol, LDL and HDL -c/w atorvastatin 40 mg qHS DM -Home dose metformin held - ISS + BGM ACHS - HbA1c 6.8 Ppx -DVT: Lovenox FEN -No standing fluids -replete electrolytes as needed -Diabetic diet Dispo: admission to floors. ATTENDING PHYSICIAN STATEMENT I saw and evaluated the patient. I reviewed the resident's note and discussed the case with the resident. I agree with the resident's findings and plan as documented. SUBJECTIVE: OBJECTIVE: ASSESSMENT AND PLAN:
[2020-05-06] MEDS: INSULIN SLIDING SCALE (NOVOLOG) 1 VIAL SQ SCH ×2 (11:59→12:00)
--- NOTE | 2020-05-06 12:44 | EKG ---
Test Reason : Blood Pressure : / mmHG Vent. Rate : 097 BPM Atrial Rate : 097 BPM P-R Int : 142 ms QRS Dur : 092 ms QT Int : 354 ms P-R-T Axes : 069 055 043 degrees QTc Int : 449 ms NORMAL SINUS RHYTHM POSSIBLE LEFT ATRIAL ENLARGEMENT BORDERLINE ECG WHEN COMPARED WITH ECG OF 11-AUG-2018 18:42, NO SIGNIFICANT CHANGE WAS FOUND Confirmed by Choco Costello ([id number]) on 05/06/2020 12:44:14 PM Referred By: Confirmed By:Choco Costello
[2020-05-06 15:49] VITALS: TEMP 97.9
--- NOTE | 2020-05-06 16:45 | CON.NEURO ---
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 - Alcohol/Substance Use Hx Alcohol Use: No - Smoking History Smoking history: Current every day smoker Have you smoked in the past 12 months: Yes Aproximately how many cigarettes per day: 10 Home Medications - Allergies Allergies/Adverse Reactions: Allergies Allergy/AdvReac Type Severity Reaction Status Date / Time No Known Allergies Allergy Verified 08/11/18 17:58 - Home Medications Home Medications: Ambulatory Orders Metformin HCl [Glucophage] 500 mg PO BID 08/12/18 Family Medical History Family Hx Diabetes: Sister Physical Exam-Neuro Vital Signs: Vital Signs Temperature 97.9 F 05/06/20 12:26 Pulse Rate 70 05/06/20 12:26 Respiratory Rate 15 05/06/20 15:52 Blood Pressure 110/71 05/06/20 12:26 O2 Sat by Pulse Oximetry (%) 100 05/06/20 15:52 Labs: CBC, BMP 05/06/20 06:00 05/06/20 06:00 Assessment/Plan CC Constant tingling and numbness of left hand ( all fingers ) for three days HPI 49 year old male history of DM, Perirectal fistula , history of stroke in 2009 , not on any statin , he takes apsirin. Patient has been experiencing left hand tingling and numbness of left hand. Patinet denies any neck pain or similar symptoms in lower extremity. Patient denies any weakness. His ct head and mri of brain uremarkable. 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 He came with left hand tinglign and numbness of all finger tip of left hand, exam is normal, ct and mri of brain is normal -- unlikley to be stroke - history of old stroke ( not on any statin) Plan -- emg outpatient - try ct spling in left hand, course of nsaid for ten days - outpatient follow up - consider statin to current medication after reviewing old records for stroke in past ( 2009) Thanking you so much Raul Clement MD
--- NOTE | 2020-05-06 17:41 | DS ---
Physical Exam: SUBJECTIVE: Patient seen and examined. Complained of L hand numbness and tingling. OBJECTIVE: Vital Signs Period Temp Pulse Resp BP Sys/Barfield Pulse Ox Last 24 Hr 97.3 F-98.4 F 67-79 15-20 110-132/71-84 96-100 PHYSICAL EXAM GENERAL: Awake and alert, not in acute distress. HEENT: NCAT, EOMI. Moist mucus membranes. CARDIAC: RRR, S1, S2 present. No murmur. RESPIRATORY: CTA b/l. No wheezes. ABDOMEN: Obese. Soft, nondistended, Nontender to palpation. Bowel sounds present. NEURO: moving extremities spontaneously. NIHSS 0. EXTREMITIES: Warm, well-perfused, no edema. SKIN: Warm, dry. Tender, firm L axillary nodules present. Hyperpigmented nontender R inguinal nodule present. LABS CBC, BMP 05/06/20 06:00 05/06/20 06:00 HOSPITAL COURSE: 49 year old M with PMH DM, HLD, mann-rectal fistual s/p REUA and drain placement, CVA in 2009 s/p tPA (L sided weakness) presented with 6 days of L hand numbness and tingling. Pt was evaluated at [facility] for previous CVA and declined to take statin due to belief that life-style modifications would be sufficient. Pt was admitted for CVA workup. NIHSS 0 upon evaluation. Neurological exam was within normal limits. MRI brain, CT head were unremarkable. No acute pathology. Neurology consulted. Recommended pt f/u for outpatient EMG, place L hand in splint and c/w statins due to h/o previous stroke. Can take NSAIDs PRN. Pt is hemodyanamically stable and medically optimized to be discharged home. MRI brain; 05/06/2020 Unremarkable examination. There is no acute infarction. CT head w/o contrast; 05/05/2020 No acute bleed or mass or fracture. No CT evidence of acute infarct. If symptoms persist recommend MRI CXR; 05/05/2020 No acute chest pathology. Azygos lobe and fissure. Date of Admission:05/05/20 Date of Discharge: 05/06/20 Minutes to complete discharge: 36 Discharge Summary Problems reviewed: Yes Reason For Visit: CEREBROVASCULAR ACCIDENT (CVA) Current Active Problems Paresthesias in left hand (Acute) Condition: Stable - Instructions Diet, Activity, Other Instructions: Your visit: You were admitted to the hospital for left hand numbness and tingling. You had imaging done of your head and chest. You were found to have no concerning findings in your brain. You were evaluated by a neurologist, who recommended you follow up to do further evaluation as an outpatient. You will have your left hand in a splint to help alleviate your symptoms. Additional image findings: You were found to have chronic sinus issues while imaging your head. If you are experiencing worsening symptoms, please follow up with your primary care doctor. Medications changes: -Please continue to take Atorvastatin 40 mg at night. -You may take Ibuprofen 400mg every 6 hours as needed for the next 7 days. DO NOT EXCEED 2400 mg per day. -Continue to take all other home medications as prescribed. Follow up: - Please follow-up with your Neurologist, Dr. Clement, in 1 week. You will need an electromyography. - Visit with your Primary Care Provider, Dr. Waller in 2 weeks. Additional Instructions: -You are being discharged to your home. -Please return to the Emergency Department if you experience worsening pain, fevers, chills, shortness of breath, or chest pain, or if you experience any worsening, new or concerning symptoms. Referrals: Raul Clement MD [Staff Physician] - 1 Week Gil Waller MD [Non Staff, Medical] - 2 Weeks Disposition: HOME - Home Medications Comprehensive Discharge Medication List: Ambulatory Orders Metformin HCl [Glucophage] 500 mg PO BID 08/12/18 Atorvastatin Ca [Lipitor] 40 mg PO HS #30 tablet 05/06/20 This patient is new to me today: Yes Date on this admission: 05/06/20 Emergency Visit: Yes ED Registration Date: 05/05/20 Care time: The patient presented to the Emergency Department on the above date and was hospitalized for further evaluation of their emergent condition. Critical Care patient: No - Discharge Referral Referred to [facility] Med P.C.: No ATTENDING PHYSICIAN STATEMENT I saw and evaluated the patient. I reviewed the resident's note and discussed the case with the resident. I agree with the resident's findings and plan as documented. SUBJECTIVE: OBJECTIVE: ASSESSMENT AND PLAN:
[2020-05-06 18:13] VITALS: BP 129/86; PULSE 95
[2020-05-06] MEDS ORDERED: ATORVASTATIN CA 40 MG TABLET (FP) PO SCH (22:00)
== END 2020-05-06 18:13 | disposition home or self-care (01) | DRG 58 ==
LOC: JER 19:54 → JERBED 23:46
PROVIDERS: ADMIT Hospitalist; ATTEND Internal Medicine
DX: R20.2 Paresthesia of skin (principal); F17.210 Nicotine dependence, cigarettes, uncomplicated; I69.354 Hemiplegia and hemiparesis following cerebral infarction affecting left non-dominant side; D72.829 Elevated white blood cell count, unspecified; E11.9 Type 2 diabetes mellitus without complications; E78.5 Hyperlipidemia, unspecified
CPT/HCPCS: 36415; 70450-TC; 70551-TC; 71046-TC-FY; 80048; 80053; 80061; 81003; 82962; 83036; 83721; 83735; 84100; 84443; 84484; 85025; 93005; 93010; 99285-25; U0003

== ENCOUNTER 2022-11-21 08:31 | Emergency (ER) | payer OTHER ==
[2022-11-21 08:44] VITALS: BMI 34.8
[2022-11-21] MEDS ORDERED: SODIUM CHLORIDE 0.9% 500 ML INFUS.BAG IV ONE (09:21)
[2022-11-21 10:11] LABS: BASO % 1.6 % (0-2.0); HEMATOCRIT 37.4 % (35.4-49); HEMOGLOBIN 13.5 GM/dL (11.7-16.9); LYMPH % 27.2 % (8-40); MCH 32.8 pg (25.7-33.7); MCHC 35.9 g/dl (32.0-35.9); MEAN CELL VOLUME 91.3 fl (80-96); MEAN PLT VOLUME 9.4 fl (7.5-11.1); NEUT % 60.2 % (42.8-82.8); PLATELET COUNT 217 10^3/uL (134-434); RDW 13.3 % (11.9-15.9); WHITE BLOOD COUNT 13.3 K/mm3 (4.0-10.0)
[2022-11-21 10:31] LABS: ALBUMIN 3.6 g/dl (3.4-5.0); BLOOD UREA NITROGEN 27.1 mg/dL (7-18); CALCIUM 8.8 mg/dL (8.5-10.1); MAGNESIUM 1.8 mg/dL (1.8-2.4)
[2022-11-21 10:33] LABS: CREATININE 1.2 mg/dL (0.55-1.3)
[2022-11-21 10:35] LABS: BILIRUBIN,TOTAL 0.3 mg/dL (0.2-1); TOT PROT 7.2 g/dl (6.4-8.2)
[2022-11-21 14:19] VITALS: BP 115/56; PULSE 82; RESP 14; TEMP 98.1
== END 2022-11-21 14:29 | disposition home or self-care (01) ==
LOC: JER 08:31
DX: R00.2 Palpitations (principal); Z20.822 Contact with and (suspected) exposure to COVID-19
CPT/HCPCS: 0241U-QW; 36415; 71045-TC-FY; 80053; 83735; 84443; 84484; 85025; 93005; 93010; 99285-25